=== PATIENT | female | born 2000 | race Hispanic/Latino ===

== ENCOUNTER → 2023-11-24 11:06 | Outpatient (CLI) | payer OTHER, SELFPAY ==
--- NOTE | 2023-11-24 11:07 | DI.US.S_ITS ---
PROCEDURE: US OB <= 14 WEEKS FETUS INDICATIONS: Dating and viability OUTSIDE/PRIOR DATING DATA: Last menstrual period (LMP): 10/01/2023. LMP-based estimated date of delivery (SOLITARIO): 07/07/2024. First dating scan (date and location): Today's exam. Estimated date of delivery (SOLITARIO) from first dating scan: 07/12/2024. TECHNIQUE: Real-time scanning was performed of the fetus and maternal pelvic organs, with image documentation. Endovaginal scanning was also performed to better visualize the fetus and maternal ovaries. COMPARISON: None. FINDINGS: Single living intrauterine gestational sac visualized. Small perigestational fluid collection measuring 7 x 7 x 7 mm. Embryo: 0.96 cm, 7 weeks 0 days Heart rate: 144 beats per minute Maternal organs: Ovaries are unremarkable. IMPRESSION: Single living intrauterine at 7 weeks 0 days, SOLITARIO of 07/12/2024 based on today's exam. Small perigestational fluid collection. We strive to produce accurate, complete, and clear reports of imaging services. To assist us in improving patient care, this report was composed using standard report templates and voice recognition software. Therefore, it may contain abnormal punctuation, insertions and/or omissions. Occasional wrong-word or sound-alike substitutions may occur. Though we review the report and make efforts to correct it, we do recommend that the report be read carefully in proper context to recognize any text inaccuracies. Dictated by: Jayme Villalpando M.D. on 11/24/2023 at 13:17 Approved by: Jayme Villalpando M.D. on 11/24/2023 at 13:21
== END ==
LOC: US 11:06
PROVIDERS: Referring Provider Family Medicine; Visit Provider Family Medicine
DX: Z34.01 Encounter for supervision of normal first pregnancy, first trimester (principal); Z3A.01 Less than 8 weeks gestation of pregnancy
CPT/HCPCS: 76801; 76817

== ENCOUNTER → 2023-12-04 09:58 | Outpatient (CLI) | payer OTHER, SELFPAY ==
[2023-12-04 11:32] LABS: Appearance Urine UA CLEAR; Bilirubin Urine UA NEGATIVE (NEGATIVE); Color Urine UA YELLOW; Glucose Urine UA NEGATIVE (Negative); Ketones Urine UA NEGATIVE (NEGATIVE); Leukocyte Esterase Urine UA NEGATIVE (NEGATIVE); Nitrite Urine UA NEGATIVE (Negative); Occult Blood Urine UA NEGATIVE (Negative); Protein Urine UA NEGATIVE (Negative); Specific Gravity Urine UA 1.015 (1.000-1.035); Urobilinogen Urine UA 0.2 E.U./dL (0.2)
[2023-12-04 11:34] LABS: Add Manual Diff / Slide Review NO; Basophils Absolute Auto 0 /uL (0-100); Basophils Percent Auto 0.3 % (0-2); Eosinophils Absolute Auto 100 /uL (0-450); Eosinophils Percent Auto 1.7 % (2-4); Hematocrit 35.3 % (36-46); Hemoglobin 11.9 g/dL (12.0-16.0); Lymphocytes Absolute Auto 1500 /uL (1100-4500); Lymphocytes Percent Auto 19.6 % (25-40); Mean Corpuscular HGB Conc 33.9 % (30-36); Mean Corpuscular Hemoglobin 30.9 PG (26-34); Mean Corpuscular Volume 91.1 fL (80-100); Monocytes Absolute Auto 500 /uL (0-900); Monocytes Percent Auto 6.6 % (3-14); Neutrophils Absolute Auto 5500 /uL (1500-7000); Neutrophils Percent Auto 71.8 % (50-75); Platelet Count 305 X10^3/uL (150-400); Red Blood Cell Count 3.87 X10^6/uL (4.0-5.2); Red Cell Distribution Width 12.2 % (11.6-14.8); White Blood Cell Count 7.7 X10^3/uL (4.5-11.0)
[2023-12-04 11:53] LABS: Natera Collection Specimen Collected
[2023-12-04 16:06] LABS: Hepatitis B Surface Antigen NEGATIVE s/c (NEGATIVE); Rubella Antibody IgG 7.6 IU/mL (>15)
[2023-12-04 16:23] LABS: HIV 1 & 2 Ab/Ag 4th Gen Combo NEGATIVE (NEGATIVE); Hep C Virus Ab w/Reflex Quant NEGATIVE s/c (NEGATIVE)
[2023-12-05 04:09] LABS: RPR Screen Non Reactive (Non Reactive)
[2023-12-06 11:36] LABS: Varicella IgG Antibody 2077 index (Immune >165)
== END ==
PROVIDERS: Family Medicine; Referring Provider Family Medicine; Visit Provider Family Medicine
DX: O09.511 Supervision of elderly primigravida, first trimester (principal)
CPT/HCPCS: 36415; 80055; 81003; 86787; 86803; 86850; 86900; 86901; 87086; 87389

== ENCOUNTER 2023-12-19 14:30 | Outpatient (RCR) | payer OTHER, SELFPAY ==
--- NOTE | 2023-11-02 14:18 | PT.OIE ---
Current Diagnoses Low back pain, unspecified (11/02/23) Visit Care Team Role Provider Type Angel Mahmood MD Attending Provider Non-Staff Primary Care Provider Referring Provider Specialty: Family Practice Address: [address] [place] [address], [id number] Email: Physical Therapy Initial Evaluation PT-OP-A Visit Information Start: 10/26/23 17:37 Freq: Status: Active Protocol: Document 11/02/23 13:01 [facility] (Rec: 11/02/23 14:18 [facility] [id number]) Out-Patient Physical Therapy Visit Information Visit Information Visit Type Initial Evaluation Visit Start Time 13:05 Visit Stop Time 13:55 Visit Number 1 Number of CRANE OPERATOR Visits 0 PT-OP-B Current Condition Start: 10/26/23 17:37 Freq: Status: Active Protocol: Document 11/02/23 13:01 [facility] (Rec: 11/02/23 14:18 [facility] [id number]) Current Condition History of Current Condition Onset Date 2 years Current Complaints LBP History of Current Condition Pt reports LBP starting about 2 years ago. She was at work and was builidng a propeller and she thought the table was bigger than it was and hit her back on the prop then fell onto butt onto floor. Has done PT and chiro from mar 2022 until Jan 2023 then got stationed here and has to start the process all over again. Has not seen ortho/ neurosurgery or had a MRI. PT or chiro did not help. For a while, she took a lot of meds (ibuprofen, mm relaxors) and those gave you relief at the time. takes only ibu occ now. 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 Xray didn' t show anything per pt. 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 they wanted to limit her duty, but she is trying to process to a different command so cannot be on limited duty until that transfer of command. She does her job tasks, but it inc pain. At first, pain was R sided, then started going lower then to L side and now pins and needles all the time. Toes are always going numb. Had a sharp stab once when walking and legs went completely numb and fellto the ground. Now, cannot tell she has to pee, until it becomes urgen to go but denies any bowel/bladder incontinence. Denies back pain before this incident but never was able to sit josh cross apple sauce and R leg was always tighter when younger. Never painful though Treatment Goals Patient/Caregiver Goals help back not be in as much pain, back feel stronger so can do everything at work w/o others helping extra PT-OP-C Subjective Start: 10/26/23 17:37 Freq: Status: Active Protocol: Document 11/02/23 13:01 [facility] (Rec: 11/02/23 14:18 [facility] [id number]) OP-PT Pain Assessment Location back pain Pain Location Details TL to SI B Description Sharp,With Movement Description- Other pins/needles, numb legs, tight inner thigh B Frequency Constant Radiating Location pins/needles/numbness post thigh then ant ibrahim; foot gets numb Pain Aggravating Factors Standing,Sitting,Walking, Bending,Lifting Pain Alleviating Factors Heat Other Pain Alleviating Factors lidocane patch, stretch, roll out back, biofreeze, massage gun PT-OP-D Balance Start: 10/26/23 17:37 Freq: Status: Active Protocol: Document 11/02/23 13:01 [facility] (Rec: 11/02/23 14:18 [facility] [id number]) Balance Tests Single Limb Standing Single Limb- Right >30 sec pain LB Single Limb- Left >30 sec pain lat hip PT-OP-F Manual Assessment Start: 10/26/23 17:37 Freq: Status: Active Protocol: Document 11/02/23 13:01 [facility] (Rec: 11/02/23 14:18 [facility] [id number]) Manual Assessments Soft Tissue Assessment Soft Tissue Mobility Assessment B QL and ES and multifidi tightness; r glute tightness Joint Mobility Assessment Joint Mobility Assessment sacral rot PT-OP-G Mobility & Gait Start: 10/26/23 17:37 Freq: Status: Active Protocol: Document 11/02/23 13:01 [facility] (Rec: 11/02/23 14:18 [facility] [id number]) OP Gait Assessment Comments Gait Comments Amb w/dec push off R>L; dec stance time RLE PT-OP-J Posture/Palpation/Skin Start: 10/26/23 17:37 Freq: Status: Active Protocol: Document 11/02/23 13:01 [facility] (Rec: 11/02/23 14:18 [facility] [id number]) Posture Evaluation [facility] Postural Classification System [facility] Postural Classifications Posterior/Posterior Vertebral Compression Test 1 Lumbar Protective Mechanism Left AP 1 Lumbar Protective Mechanism Right AP 0 Lumbar Protective Mechanism Left PA 2 Lumbar Protective Mechanism Right PA 2 Comments Posture Comments IR L>R knee, ant pelvic tilt, R iliac crest higher, equal greater troch, rot L; pelvic sheared L PT-OP-K Range of Motion Start: 10/26/23 17:37 Freq: Status: Active Protocol: Document 11/02/23 13:01 [facility] (Rec: 11/02/23 14:18 [facility] [id number]) Lumbar Spine Range of Motion Lumbar Spine Active Percentage Flexion 100 Extension 100 Rotation Left 100 Rotation Right 100 Lateral Flexion Left 100 Lateral Flexion Right 80 Comments pain flex, ext (L5 region where hinges), R sb; rot relief PT-OP-L Special Tests Start: 10/26/23 17:37 Freq: Status: Active Protocol: Document 11/02/23 13:01 [facility] (Rec: 11/02/23 14:18 [facility] [id number]) Special Tests Lumbar Spine Special Tests SLR Test Results positive R Angelito Test Results R iliacus tighter march test Test Results positive ext sit Test Results positive R Slump Test Results positive R PT-OP-M Strength Start: 10/26/23 17:37 Freq: Status: Active Protocol: Document 11/02/23 13:01 [facility] (Rec: 11/02/23 14:18 [facility] [id number]) Hip Strength Hip Manual Muscle Testing Right Flexion (L2) 4 Good Extension (S1) 4 Good Abduction 3+ Fair+ Adduction 5 Normal External Rotation 3+ Fair+ Internal Rotation 4+ Good+ Left Flexion (L2) 4+ Good+ Extension (S1) 5 Normal Abduction 4+ Good+ External Rotation 4- Good- Internal Rotation 4+ Good+ Comments B Knee and ankle MMT WNL PT-OP-Q Treatments Start: 10/26/23 17:37 Freq: Status: Active Protocol: Document 11/02/23 13:01 [facility] (Rec: 11/02/23 14:18 [facility] [id number]) Self-Care/Home Management Treatment Education Other Education 15 min: edu re: dec core and glute strength and its affect on back. Edu how this PT will work on manual skills, facilitation and exercises to maintain changes manual treatment makes; edu re: coccyx anatomy and how it could be affecting pt's pain along w/dural, fasical and pelvic floor attachments PT-OP-T Assessment and Plan Start: 10/26/23 17:37 Freq: Status: Active Protocol: Document 11/02/23 13:01 [facility] (Rec: 11/02/23 14:18 [facility] [id number]) Physical Therapy Assessment Goals pain Short Term Goal (STG) Pt will report no LE symptoms greater than 1/10. STG Duration 12/21 [facility] Goal (LTG) Pt will report no pain in back or Les greater than 1/10 LTG Duration 01/24 SALUD Impairment 20/50 Short Term Goal (STG) Pt will score no greater than 13/50 on SALUD to show improved functional mobility STG Duration 12/11 Locomotive Switch Operator Goal (LTG) Pt will score no greater than 3/50 on SALUD to show improved functional mobility LTG Duration 01/24 strength Short Term Goal (STG) Pt will be indep w/HEP [facility] Goal (LTG) pt will score at least 4/5 in all planes LPM and 5/5 hip MMT in order to allow greater ease w/typical work activities . LTG Duration 01/24 activity Short Term Goal (STG) Pt will be able to sit and/or stand at least 1 hour w/o inc pain STG Duration 12/24 [facility] Goal (LTG) pt will be able to work and do typical daily activites w/o inc pain greater than 1/10. LTG Duration 01/24 Assessment Summary Assessment Pt presents w/pain in LBP that progressed to BLE tingling/ numbness after a fall 2 years ago where she fell to her buttocks. She had PT (all exercise based) and chiro treatment which did not make any care home changes. She is unable to sit, stand or walk extended w/o inc pain and lifting does inc pain along w/ her job duties. She has overall good ROM, WNL reflexes , weakness of core and R glutes along w/innominate dysfunction and R sided neural tension. pt likely has coccyx dysfunction that may be inc dural/neural tension and inc pain in LEs. She would benefit from skilled PT to address her deficits and improve pain. Physical Therapy Plan Frequency and Duration Frequency of Treatment 1-2x/wk Duration of treatment (weeks) 12 Plan of Care Start Date 11/02/23 Plan of Care End Date 01/25/24 Therapeutic Interventions Therapeutic Interventions Balance Training,Gait Training ,Home Exercise Program,Joint Mobilizations,Manual Therapy, Neuromuscular Re-education, Self-Care/Home Management,Soft Tissue Mobilization,Taping, Therapeutic Activities, Therapeutic Exercises Modalities Cold Pack/Ice Massage,Electric Stimulation,Hot Packs, Infrared Therapy,Traction- Mechanical,Ultrasound Next Visit Focus/Plan Next Note Type Treatment Note Next Visit Plan manual: coccyx,sacrum, SI, hip R mobs, STM to R sciatic n pathway HEP: DL flex isometric w/DF, bird dog, sideplank knees (if can add abd hip), fwd plank, hip hinge/squat training s/l sleep prop edu
--- NOTE | 2023-11-02 14:18 | PT.OPPOC ---
Physical, Occupational & Speech Therapy At [facility] Current Diagnoses Low back pain, unspecified (11/02/23) Visit Care Team Role Provider Type Angel Mahmood MD Attending Provider Non-Staff Primary Care Provider Referring Provider Specialty: Family Practice Address: [address] [place] [address], [id number] Email: Plan Of Care PT-OP-T Assessment and Plan Start: 10/26/23 17:37 Freq: Status: Active Protocol: Document 11/02/23 13:01 [facility] (Rec: 11/02/23 14:18 [facility] [id number]) Physical Therapy Assessment Goals pain Short Term Goal (STG) Pt will report no LE symptoms greater than 1/10. STG Duration 12/21 Medical Practice Assistant Goal (LTG) Pt will report no pain in back or Les greater than 1/10 LTG Duration 01/24 SALUD Impairment 20/50 Short Term Goal (STG) Pt will score no greater than 13/50 on SALUD to show improved functional mobility STG Duration 12/11 [facility] Goal (LTG) Pt will score no greater than 3/50 on SALUD to show improved functional mobility LTG Duration 01/24 strength Short Term Goal (STG) Pt will be indep w/HEP [facility] Goal (LTG) pt will score at least 4/5 in all planes LPM and 5/5 hip MMT in order to allow greater ease w/typical work activities . LTG Duration 01/24 activity Short Term Goal (STG) Pt will be able to sit and/or stand at least 1 hour w/o inc pain STG Duration 12/24 Medical Practice Assistant Goal (LTG) pt will be able to work and do typical daily activites w/o inc pain greater than 1/10. LTG Duration 01/24 Assessment Summary Assessment Pt presents w/pain in LBP that progressed to BLE tingling/ numbness after a fall 2 years ago where she fell to her buttocks. She had PT (all exercise based) and chiro treatment which did not make any chcf changes. She is unable to sit, stand or walk extended w/o inc pain and lifting does inc pain along w/ her job duties. She has overall good ROM, WNL reflexes , weakness of core and R glutes along w/innominate dysfunction and R sided neural tension. pt likely has coccyx dysfunction that may be inc dural/neural tension and inc pain in LEs. She would benefit from skilled PT to address her deficits and improve pain. Physical Therapy Plan Frequency and Duration Frequency of Treatment 1-2x/wk Duration of treatment (weeks) 12 Plan of Care Start Date 11/02/23 Plan of Care End Date 01/25/24 Therapeutic Interventions Therapeutic Interventions Balance Training,Gait Training ,Home Exercise Program,Joint Mobilizations,Manual Therapy, Neuromuscular Re-education, Self-Care/Home Management,Soft Tissue Mobilization,Taping, Therapeutic Activities, Therapeutic Exercises Modalities Cold Pack/Ice Massage,Electric Stimulation,Hot Packs, Infrared Therapy,Traction- Mechanical,Ultrasound Next Visit Focus/Plan Next Note Type Treatment Note Next Visit Plan manual: coccyx,sacrum, SI, hip R mobs, STM to R sciatic n pathway HEP: DL flex isometric w/DF, bird dog, sideplank knees (if can add abd hip), fwd plank, hip hinge/squat training s/l sleep prop edu Plan of Care Dates Plan of Care Start Date 11/02/23 Plan of Care End Date 01/25/24 Electronically Signed by: Mellisa Uribe, PT 11/02/23 [id number] If you are in agreement with this Plan of Care, please return a signed and dated copy. I have reviewed this Plan of Care and certify that the skilled therapy services above are required to meet the patient?s needs. Physician Signature Date Printed Name and Credentials Clinical Instructor Signature Printed Name and Credentials
--- NOTE | 2023-11-07 15:16 | PT.OTN ---
Current Diagnoses Low back pain, unspecified (11/07/23) Physical Therapy Treatment Note PT-OP-A Visit Information Start: 10/26/23 17:37 Freq: Status: Active Protocol: Document 11/07/23 14:32 [facility] (Rec: 11/07/23 15:45 [facility] [id number]) Out-Patient Physical Therapy Visit Information Visit Information Visit Type Initial Evaluation Visit Start Time 14:32 Visit Stop Time 15:16 Visit Number 2 Number of GYMNASTICS INSTRUCTOR Visits 1 PT-OP-B Current Condition Start: 10/26/23 17:37 Freq: Status: Active Protocol: Document 11/02/23 13:01 [facility] (Rec: 11/02/23 14:18 [facility] [id number]) Current Condition History of Current Condition Onset Date 2 years Current Complaints LBP History of Current Condition Pt reports LBP starting about 2 years ago. She was at work and was builidng a propeller and she thought the table was bigger than it was and hit her back on the prop then fell onto butt onto floor. Has done PT and chiro from mar 2022 until Jan 2023 then got stationed here and has to start the process all over again. Has not seen ortho/ neurosurgery or had a MRI. PT or chiro did not help. For a while, she took a lot of meds (ibuprofen, mm relaxors) and those gave you relief at the time. takes only ibu occ now. 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 Xray didn' t show anything per pt. 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 they wanted to limit her duty, but she is trying to process to a different command so cannot be on limited duty until that transfer of command. She does her job tasks, but it inc pain. At first, pain was R sided, then started going lower then to L side and now pins and needles all the time. Toes are always going numb. Had a sharp stab once when walking and legs went completely numb and fellto the ground. Now, cannot tell she has to pee, until it becomes urgen to go but denies any bowel/bladder incontinence. Denies back pain before this incident but never was able to sit josh cross apple sauce and R leg was always tighter when younger. Never painful though Treatment Goals Patient/Caregiver Goals help back not be in as much pain, back feel stronger so can do everything at work w/o others helping extra PT-OP-C Subjective Start: 10/26/23 17:37 Freq: Status: Active Protocol: Document 11/07/23 14:32 [facility] (Rec: 11/07/23 15:45 [facility] [id number]) OP-PT Subjective Patient Comments Patient Comments Pt reports was little sore over R SI after last tx. PT-OP-D Balance Start: 10/26/23 17:37 Freq: Status: Active Protocol: Document 11/02/23 13:01 [facility] (Rec: 11/02/23 14:18 [facility] [id number]) Balance Tests Single Limb Standing Single Limb- Right >30 sec pain LB Single Limb- Left >30 sec pain lat hip PT-OP-F Manual Assessment Start: 10/26/23 17:37 Freq: Status: Active Protocol: Document 11/02/23 13:01 [facility] (Rec: 11/02/23 14:18 [facility] [id number]) Manual Assessments Soft Tissue Assessment Soft Tissue Mobility Assessment B QL and ES and multifidi tightness; r glute tightness Joint Mobility Assessment Joint Mobility Assessment sacral rot PT-OP-G Mobility & Gait Start: 10/26/23 17:37 Freq: Status: Active Protocol: Document 11/02/23 13:01 [facility] (Rec: 11/02/23 14:18 [facility] [id number]) OP Gait Assessment Comments Gait Comments Amb w/dec push off R>L; dec stance time RLE PT-OP-J Posture/Palpation/Skin Start: 10/26/23 17:37 Freq: Status: Active Protocol: Document 11/02/23 13:01 [facility] (Rec: 11/02/23 14:18 [facility] [id number]) Posture Evaluation [facility] Postural Classification System [facility] Postural Classifications Posterior/Posterior Vertebral Compression Test 1 Lumbar Protective Mechanism Left AP 1 Lumbar Protective Mechanism Right AP 0 Lumbar Protective Mechanism Left PA 2 Lumbar Protective Mechanism Right PA 2 Comments Posture Comments IR L>R knee, ant pelvic tilt, R iliac crest higher, equal greater troch, rot L; pelvic sheared L PT-OP-K Range of Motion Start: 10/26/23 17:37 Freq: Status: Active Protocol: Document 11/02/23 13:01 [facility] (Rec: 11/02/23 14:18 [facility] [id number]) Lumbar Spine Range of Motion Lumbar Spine Active Percentage Flexion 100 Extension 100 Rotation Left 100 Rotation Right 100 Lateral Flexion Left 100 Lateral Flexion Right 80 Comments pain flex, ext (L5 region where hinges), R sb; rot relief PT-OP-L Special Tests Start: 10/26/23 17:37 Freq: Status: Active Protocol: Document 11/02/23 13:01 [facility] (Rec: 11/02/23 14:18 [facility] [id number]) Special Tests Lumbar Spine Special Tests SLR Test Results positive R Angelito Test Results R iliacus tighter march test Test Results positive ext sit Test Results positive R Slump Test Results positive R PT-OP-M Strength Start: 10/26/23 17:37 Freq: Status: Active Protocol: Document 11/02/23 13:01 [facility] (Rec: 11/02/23 14:18 [facility] [id number]) Hip Strength Hip Manual Muscle Testing Right Flexion (L2) 4 Good Extension (S1) 4 Good Abduction 3+ Fair+ Adduction 5 Normal External Rotation 3+ Fair+ Internal Rotation 4+ Good+ Left Flexion (L2) 4+ Good+ Extension (S1) 5 Normal Abduction 4+ Good+ External Rotation 4- Good- Internal Rotation 4+ Good+ Comments B Knee and ankle MMT WNL PT-OP-Q Treatments Start: 10/26/23 17:37 Freq: Status: Active Protocol: Document 11/07/23 14:32 [facility] (Rec: 11/07/23 15:45 [facility] [id number]) Therapeutic Exercises Supine Exercises FIg 4 Side bilateral Equipment Used R foot inner thigh vs over opp L knee, L fine over R knee L Comments R >L limitation ER, improved ROM post manual angelito stretch Supine Exercise Name reviewed self stretch Side right Reps/Minutes 60 Comments good feedback stretch self pelvic alignment Supine Exercise Name 90/90 Side bilateral Equipment Used dowel ant thigh/post thigh, dowel Reps/Minutes 5 SH x3 reps each Comments pnfree, weakness L hip flexor reported (harder) Sidelying Exercises clamshell Sidelying Exercise Name added to HEP Side bilateral Resistance Tb #2 aqua band at thighs Reps/Minutes x10 Comments cued light TA draw in during lift lower, no pelvic wobble Other Exercises child pose Equipment Used over wedge- support trunk/UEs Comments during initial R lateral sacrum Manual Therapy Treatment Soft Tissue Mobilization hips Body Location piriformis Mobilization Type Sustained Pressure,Other Body Position prone over pillows Comments 1. child's pose R lateral sacrum 2. prone over pillows: MWM hip IR/ER: limited L ER, R IR Joint Mobilizations hips Joint R Body Position Supine Comments limited ER fig 4 pain anterolateral hip- 1. MWM ER strap anterior glide FM IR/ER, 2. inferior glide hip adduction/IR (pirifirmis positioning). Good feedback deep R hip stretch Manual Techniques MET Type R ilium flare out, level Comments MET isometric adduction R, abd L; self instructed hip flex/ ext MWM use dowel isometric Self-Care/Home Management Treatment Education Patient Education Body Mechanics,Joint Protection,Pain Management, Posture Other Education Time spent discussion use pillows between knees, behind back sidelying, under upper thighs supine with good feedback support to back and hip comfort. PT-OP-T Assessment and Plan Start: 10/26/23 17:37 Freq: Status: Active Protocol: Document 11/07/23 14:32 [facility] (Rec: 11/07/23 15:45 [facility] [id number]) Physical Therapy Assessment Goals pain Short Term Goal (STG) Pt will report no LE symptoms greater than 1/10. STG Duration 12/21 Digital Media Intern Goal (LTG) Pt will report no pain in back or Les greater than 1/10 LTG Duration 01/24 SALUD Impairment 20/50 Short Term Goal (STG) Pt will score no greater than 13/50 on SALUD to show improved functional mobility STG Duration 7/ Jail Goal (LTG) Pt will score no greater than 3/50 on SALUD to show improved functional mobility LTG Duration 01/24 strength Short Term Goal (STG) Pt will be indep w/HEP Jail Goal (LTG) pt will score at least 4/5 in all planes LPM and 5/5 hip MMT in order to allow greater ease w/typical work activities . LTG Duration 01/24 activity Short Term Goal (STG) Pt will be able to sit and/or stand at least 1 hour w/o inc pain STG Duration 12/24 Jail Goal (LTG) pt will be able to work and do typical daily activites w/o inc pain greater than 1/10. LTG Duration 01/24 Assessment Summary Assessment Pt responded well to manual, increased R hip ER Fig4. Good muscle tiring lat hip post clamshell no pain. I am able to movehip better. Physical Therapy Plan Frequency and Duration Frequency of Treatment 1-2x/wk Duration of treatment (weeks) 12 Plan of Care Start Date 11/02/23 Plan of Care End Date 01/25/24 Therapeutic Interventions Therapeutic Interventions Balance Training,Gait Training ,Home Exercise Program,Joint Mobilizations,Manual Therapy, Neuromuscular Re-education, Self-Care/Home Management,Soft Tissue Mobilization,Taping, Therapeutic Activities, Therapeutic Exercises Modalities Cold Pack/Ice Massage,Electric Stimulation,Hot Packs, Infrared Therapy,Traction- Mechanical,Ultrasound Next Visit Focus/Plan Next Note Type Treatment Note Next Visit Plan Assess response to manual, stretching and hip abd strengthening. POC: manual: coccyx,sacrum, SI , hip R mobs, STM to R sciatic n pathway HEP: DL flex isometric w/DF, bird dog, sideplank knees (if can add abd hip), fwd plank, hip hinge/squat training s/l sleep prop edu
--- NOTE | 2023-11-09 14:30 | PT.OTN ---
Current Diagnoses Low back pain, unspecified (11/09/23) Physical Therapy Treatment Note PT-OP-A Visit Information Start: 10/26/23 17:37 Freq: Status: Active Protocol: Document 11/09/23 13:50 SP (Rec: 11/09/23 14:34 SP [id number]) Out-Patient Physical Therapy Visit Information Visit Information Visit Type Treatment Note Visit Start Time 13:50 Visit Stop Time 14:30 Visit Number 3 Number of LANDSCAPE MANAGER Visits 2 PT-OP-B Current Condition Start: 10/26/23 17:37 Freq: Status: Active Protocol: Document 11/02/23 13:01 [facility] (Rec: 11/02/23 14:18 [facility] [id number]) Current Condition History of Current Condition Onset Date 2 years Current Complaints LBP History of Current Condition Pt reports LBP starting about 2 years ago. She was at work and was builidng a propeller and she thought the table was bigger than it was and hit her back on the prop then fell onto butt onto floor. Has done PT and chiro from mar 2022 until Jan 2023 then got stationed here and has to start the process all over again. Has not seen ortho/ neurosurgery or had a MRI. PT or chiro did not help. For a while, she took a lot of meds (ibuprofen, mm relaxors) and those gave you relief at the time. takes only ibu occ now. 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 Xray didn' t show anything per pt. 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 they wanted to limit her duty, but she is trying to process to a different command so cannot be on limited duty until that transfer of command. She does her job tasks, but it inc pain. At first, pain was R sided, then started going lower then to L side and now pins and needles all the time. Toes are always going numb. Had a sharp stab once when walking and legs went completely numb and fellto the ground. Now, cannot tell she has to pee, until it becomes urgen to go but denies any bowel/bladder incontinence. Denies back pain before this incident but never was able to sit josh cross apple sauce and R leg was always tighter when younger. Never painful though Treatment Goals Patient/Caregiver Goals help back not be in as much pain, back feel stronger so can do everything at work w/o others helping extra PT-OP-C Subjective Start: 10/26/23 17:37 Freq: Status: Active Protocol: Document 11/09/23 13:50 SP (Rec: 11/09/23 14:34 SP [id number]) OP-PT Subjective Patient Comments Patient Comments Pt reports little soreness R>L over TFL and glut med inferior ilium after last tx. Feels little pinch across B SI if goes up stairs to quick. PT-OP-D Balance Start: 10/26/23 17:37 Freq: Status: Active Protocol: Document 11/02/23 13:01 [facility] (Rec: 11/02/23 14:18 [facility] [id number]) Balance Tests Single Limb Standing Single Limb- Right >30 sec pain LB Single Limb- Left >30 sec pain lat hip PT-OP-F Manual Assessment Start: 10/26/23 17:37 Freq: Status: Active Protocol: Document 11/02/23 13:01 [facility] (Rec: 11/02/23 14:18 [facility] [id number]) Manual Assessments Soft Tissue Assessment Soft Tissue Mobility Assessment B QL and ES and multifidi tightness; r glute tightness Joint Mobility Assessment Joint Mobility Assessment sacral rot PT-OP-G Mobility & Gait Start: 10/26/23 17:37 Freq: Status: Active Protocol: Document 11/02/23 13:01 [facility] (Rec: 11/02/23 14:18 [facility] [id number]) OP Gait Assessment Comments Gait Comments Amb w/dec push off R>L; dec stance time RLE PT-OP-J Posture/Palpation/Skin Start: 10/26/23 17:37 Freq: Status: Active Protocol: Document 11/02/23 13:01 [facility] (Rec: 11/02/23 14:18 [facility] [id number]) Posture Evaluation Dotty Postural Classification System Dotty Postural Classifications Posterior/Posterior Vertebral Compression Test 1 Lumbar Protective Mechanism Left AP 1 Lumbar Protective Mechanism Right AP 0 Lumbar Protective Mechanism Left PA 2 Lumbar Protective Mechanism Right PA 2 Comments Posture Comments IR L>R knee, ant pelvic tilt, R iliac crest higher, equal greater troch, rot L; pelvic sheared L PT-OP-K Range of Motion Start: 10/26/23 17:37 Freq: Status: Active Protocol: Document 11/02/23 13:01 [facility] (Rec: 11/02/23 14:18 [facility] [id number]) Lumbar Spine Range of Motion Lumbar Spine Active Percentage Flexion 100 Extension 100 Rotation Left 100 Rotation Right 100 Lateral Flexion Left 100 Lateral Flexion Right 80 Comments pain flex, ext (L5 region where hinges), R sb; rot relief PT-OP-L Special Tests Start: 10/26/23 17:37 Freq: Status: Active Protocol: Document 11/02/23 13:01 [facility] (Rec: 11/02/23 14:18 [facility] [id number]) Special Tests Lumbar Spine Special Tests SLR Test Results positive R Angelito Test Results R iliacus tighter march test Test Results positive ext sit Test Results positive R Slump Test Results positive R PT-OP-M Strength Start: 10/26/23 17:37 Freq: Status: Active Protocol: Document 11/02/23 13:01 [facility] (Rec: 11/02/23 14:18 [facility] [id number]) Hip Strength Hip Manual Muscle Testing Right Flexion (L2) 4 Good Extension (S1) 4 Good Abduction 3+ Fair+ Adduction 5 Normal External Rotation 3+ Fair+ Internal Rotation 4+ Good+ Left Flexion (L2) 4+ Good+ Extension (S1) 5 Normal Abduction 4+ Good+ External Rotation 4- Good- Internal Rotation 4+ Good+ Comments B Knee and ankle MMT WNL PT-OP-Q Treatments Start: 10/26/23 17:37 Freq: Status: Active Protocol: Document 11/09/23 13:50 SP (Rec: 11/09/23 14:34 SP [id number]) Therapeutic Exercises Supine Exercises Bridge /c Hip ABD Supine Exercise Name trialed inPT- ed segmental bridge Resistance TB #2 around thighs Reps/Minutes 5 SH x5, 10 SH x5 reps Comments cued gentle glut engagment & sacral flex roll asc/desc self pelvic alignment Supine Exercise Name 90/90 Side bilateral Equipment Used dowel ant thigh/post thigh, dowel Reps/Minutes 5 SH x3 reps each Comments pnfree, weakness L hip flexor reported (harder) Sidelying Exercises clamshell Side bilateral Resistance Tb #2 aqua band at thighs Reps/Minutes 3 SH x12 Comments improved form Other Exercises bird dog Other Exercise Name trialed in PT Side bilateral Resistance UE/ LE ext Reps/Minutes x10 each side Comments min cues level pelvis L>R down /floor correction child pose Reps/Minutes feet close, knees apart Comments improved feel can do deeper stretch, pnfree Therapeutic Activity Therapeutic Activity squat mechanics Comments 1. dowel along spine hip hinge 2. dowel at spine squat 3. dowel AROM> 5# wt front hip hinge lift 4. squat crate lift 10#- cued PPT neutral squat and glut drive come stand- better just tiring warm mid/upper lumbar no pain 5. Ed spanish moss picker crate and pivot with Les, square up to crate not twist. PT-OP-T Assessment and Plan Start: 10/26/23 17:37 Freq: Status: Active Protocol: Document 11/09/23 13:50 SP (Rec: 11/09/23 14:34 SP [id number]) Physical Therapy Assessment Goals pain Short Term Goal (STG) Pt will report no LE symptoms greater than 1/10. STG Duration 12/21 Senior Care Goal (LTG) Pt will report no pain in back or Les greater than 1/10 LTG Duration 01/24 SALUD Impairment 20/50 Short Term Goal (STG) Pt will score no greater than 13/50 on SALUD to show improved functional mobility STG Duration 7/ Senior Care Goal (LTG) Pt will score no greater than 3/50 on SALUD to show improved functional mobility LTG Duration 01/24 strength Short Term Goal (STG) Pt will be indep w/HEP Senior Care Goal (LTG) pt will score at least 4/5 in all planes LPM and 5/5 hip MMT in order to allow greater ease w/typical work activities . LTG Duration 01/24 activity Short Term Goal (STG) Pt will be able to sit and/or stand at least 1 hour w/o inc pain STG Duration 12/24 Senior Care Goal (LTG) pt will be able to work and do typical daily activites w/o inc pain greater than 1/10. LTG Duration 01/24 Assessment Summary Assessment Pt has level ilium ASIS and PSIS. 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 Cues for spinal alignment TA and PPT CRIMPING MACHINE OPERATOR during squat, improvement form and TA engagment reported, alot better feeling than what use to. Ed for carryover picking up items, square up to and pivot vs twist for back health with verbal understanding. Physical Therapy Plan Frequency and Duration Frequency of Treatment 1-2x/wk Duration of treatment (weeks) 12 Plan of Care Start Date 11/02/23 Plan of Care End Date 01/25/24 Therapeutic Interventions Therapeutic Interventions Balance Training,Gait Training ,Home Exercise Program,Joint Mobilizations,Manual Therapy, Neuromuscular Re-education, Self-Care/Home Management,Soft Tissue Mobilization,Taping, Therapeutic Activities, Therapeutic Exercises Modalities Cold Pack/Ice Massage,Electric Stimulation,Hot Packs, Infrared Therapy,Traction- Mechanical,Ultrasound Next Visit Focus/Plan Next Note Type Treatment Note Next Visit Plan Assess response added resistance to hip abd & ER LE strengthening and initiated squat mechanics. POC: manual: coccyx,sacrum, SI , hip R mobs, STM to R sciatic n pathway HEP: DL flex isometric w/DF, bird dog, sideplank knees (if can add abd hip), fwd plank
--- NOTE | 2023-11-13 13:59 | PT-OP ANOTE ---
Pt called and VM left re: no show and reminded of next scheduled visit 11/28 and was encouraged to call to be on [facility] for next week. Pt reminded of no show policy.
--- NOTE | 2023-11-29 09:55 | PT.OTN ---
Current Diagnoses Low back pain, unspecified (11/29/23) Physical Therapy Treatment Note PT-OP-A Visit Information Start: 10/26/23 17:37 Freq: Status: Active Protocol: Document 11/29/23 09:06 [facility] (Rec: 11/29/23 09:53 [facility] [id number]) Out-Patient Physical Therapy Visit Information Visit Information Visit Type Treatment Note Visit Start Time 09:07 Visit Stop Time 09:45 Visit Number 4 Number of SNOWBLOWER MECHANIC Visits 0 PT-OP-B Current Condition Start: 10/26/23 17:37 Freq: Status: Active Protocol: Document 11/02/23 13:01 [facility] (Rec: 11/02/23 14:18 [facility] [id number]) Current Condition History of Current Condition Onset Date 2 years Current Complaints LBP History of Current Condition Pt reports LBP starting about 2 years ago. She was at work and was builidng a propeller and she thought the table was bigger than it was and hit her back on the prop then fell onto butt onto floor. Has done PT and chiro from mar 2022 until Jan 2023 then got stationed here and has to start the process all over again. Has not seen ortho/ neurosurgery or had a MRI. PT or chiro did not help. For a while, she took a lot of meds (ibuprofen, mm relaxors) and those gave you relief at the time. takes only ibu occ now. 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 Xray didn' t show anything per pt. 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 they wanted to limit her duty, but she is trying to process to a different command so cannot be on limited duty until that transfer of command. She does her job tasks, but it inc pain. At first, pain was R sided, then started going lower then to L side and now pins and needles all the time. Toes are always going numb. Had a sharp stab once when walking and legs went completely numb and fellto the ground. Now, cannot tell she has to pee, until it becomes urgen to go but denies any bowel/bladder incontinence. Denies back pain before this incident but never was able to sit josh cross apple sauce and R leg was always tighter when younger. Never painful though Treatment Goals Patient/Caregiver Goals help back not be in as much pain, back feel stronger so can do everything at work w/o others helping extra PT-OP-C Subjective Start: 10/26/23 17:37 Freq: Status: Active Protocol: Document 11/29/23 09:06 [facility] (Rec: 11/29/23 09:53 [facility] [id number]) OP-PT Subjective Patient Comments Patient Comments Pt reports compliance w/ exercises and found out she was the day she missed last session. She is 8 weeks PT-OP-D Balance Start: 10/26/23 17:37 Freq: Status: Active Protocol: Document 11/02/23 13:01 [facility] (Rec: 11/02/23 14:18 [facility] [id number]) Balance Tests Single Limb Standing Single Limb- Right >30 sec pain LB Single Limb- Left >30 sec pain lat hip PT-OP-F Manual Assessment Start: 10/26/23 17:37 Freq: Status: Active Protocol: Document 11/02/23 13:01 [facility] (Rec: 11/02/23 14:18 [facility] [id number]) Manual Assessments Soft Tissue Assessment Soft Tissue Mobility Assessment B QL and ES and multifidi tightness; r glute tightness Joint Mobility Assessment Joint Mobility Assessment sacral rot PT-OP-G Mobility & Gait Start: 10/26/23 17:37 Freq: Status: Active Protocol: Document 11/02/23 13:01 [facility] (Rec: 11/02/23 14:18 [facility] [id number]) OP Gait Assessment Comments Gait Comments Amb w/dec push off R>L; dec stance time RLE PT-OP-J Posture/Palpation/Skin Start: 10/26/23 17:37 Freq: Status: Active Protocol: Document 11/02/23 13:01 [facility] (Rec: 11/02/23 14:18 [facility] [id number]) Posture Evaluation Dotty Postural Classification System Dotty Postural Classifications Posterior/Posterior Vertebral Compression Test 1 Lumbar Protective Mechanism Left AP 1 Lumbar Protective Mechanism Right AP 0 Lumbar Protective Mechanism Left PA 2 Lumbar Protective Mechanism Right PA 2 Comments Posture Comments IR L>R knee, ant pelvic tilt, R iliac crest higher, equal greater troch, rot L; pelvic sheared L PT-OP-K Range of Motion Start: 10/26/23 17:37 Freq: Status: Active Protocol: Document 11/02/23 13:01 [facility] (Rec: 11/02/23 14:18 [facility] [id number]) Lumbar Spine Range of Motion Lumbar Spine Active Percentage Flexion 100 Extension 100 Rotation Left 100 Rotation Right 100 Lateral Flexion Left 100 Lateral Flexion Right 80 Comments pain flex, ext (L5 region where hinges), R sb; rot relief PT-OP-L Special Tests Start: 10/26/23 17:37 Freq: Status: Active Protocol: Document 11/02/23 13:01 [facility] (Rec: 11/02/23 14:18 [facility] [id number]) Special Tests Lumbar Spine Special Tests SLR Test Results positive R Angelito Test Results R iliacus tighter march test Test Results positive ext sit Test Results positive R Slump Test Results positive R PT-OP-M Strength Start: 10/26/23 17:37 Freq: Status: Active Protocol: Document 11/02/23 13:01 [facility] (Rec: 11/02/23 14:18 [facility] [id number]) Hip Strength Hip Manual Muscle Testing Right Flexion (L2) 4 Good Extension (S1) 4 Good Abduction 3+ Fair+ Adduction 5 Normal External Rotation 3+ Fair+ Internal Rotation 4+ Good+ Left Flexion (L2) 4+ Good+ Extension (S1) 5 Normal Abduction 4+ Good+ External Rotation 4- Good- Internal Rotation 4+ Good+ Comments B Knee and ankle MMT WNL PT-OP-Q Treatments Start: 10/26/23 17:37 Freq: Status: Active Protocol: Document 11/29/23 09:06 [facility] (Rec: 11/29/23 09:53 [facility] [id number]) Therapeutic Exercises Supine Exercises Bridge /c Hip ABD Supine Exercise Name Single leg w/opp leg ext and foot on ground Side bilateral Reps/Minutes 12 ea Sidelying Exercises clamshell Sidelying Exercise Name sideplank forearm and knees Side bilateral Resistance no band Reps/Minutes 12 ea Other Exercises bird dog Side bilateral Resistance UE flex / LE ext Reps/Minutes 15 ea Comments cues w/L>R for no hip rot Manual Therapy Treatment Soft Tissue Mobilization hips Mobilization Type Rolling,Sustained Pressure, Other Comments B proximal HS, R lat glute, R iliacus Joint Mobilizations hips Comments B Inf and B hip ER free the ball FM PT-OP-T Assessment and Plan Start: 10/26/23 17:37 Freq: Status: Active Protocol: Document 11/29/23 09:06 [facility] (Rec: 11/29/23 09:53 [facility] [id number]) Physical Therapy Assessment Goals pain Short Term Goal (STG) Pt will report no LE symptoms greater than 1/10. STG Duration 12/21 Retirement Goal (LTG) Pt will report no pain in back or Les greater than 1/10 LTG Duration 01/24 SALUD Impairment 20/50 Short Term Goal (STG) Pt will score no greater than 13/50 on SALUD to show improved functional mobility STG Duration 12/11 Retirement Goal (LTG) Pt will score no greater than 3/50 on SALUD to show improved functional mobility LTG Duration 01/24 strength Short Term Goal (STG) Pt will be indep w/HEP Telecommunications Repairer Goal (LTG) pt will score at least 4/5 in all planes LPM and 5/5 hip MMT in order to allow greater ease w/typical work activities . LTG Duration 01/24 activity Short Term Goal (STG) Pt will be able to sit and/or stand at least 1 hour w/o inc pain STG Duration 12/24 Telecommunications Repairer Goal (LTG) pt will be able to work and do typical daily activites w/o inc pain greater than 1/10. LTG Duration 01/24 Assessment Summary Assessment Pt stood up and reports hips and legs painfree after manual . Able to advance strengthening exercises w/o inc pain Physical Therapy Plan Frequency and Duration Frequency of Treatment 1-2x/wk Duration of treatment (weeks) 12 Plan of Care Start Date 11/02/23 Plan of Care End Date 01/25/24 Next Visit Focus/Plan Next Note Type Treatment Note Next Visit Plan cont to advance core and work manually on innominate and back gently
--- NOTE | 2023-12-01 09:47 | PT.OTN ---
Current Diagnoses Low back pain, unspecified (12/01/23) Physical Therapy Treatment Note PT-OP-A Visit Information Start: 10/26/23 17:37 Freq: Status: Active Protocol: Document 12/01/23 13:47 SP (Rec: 12/01/23 14:32 SP [id number]) Out-Patient Physical Therapy Visit Information Visit Information Visit Type Treatment Note Visit Note NURSING SECRETARY Beau shadowed and assisted manual and ther ex instruction. Visit Start Time 09:07 Visit Stop Time 09:47 Visit Number 5 Number of NURSING SECRETARY Visits 1 Precautions Precautions 12/01/23: new 8 weeks . PT-OP-B Current Condition Start: 10/26/23 17:37 Freq: Status: Active Protocol: Document 11/02/23 13:01 LR (Rec: 11/02/23 14:18 [facility] [id number]) Current Condition History of Current Condition Onset Date 2 years Current Complaints LBP History of Current Condition Pt reports LBP starting about 2 years ago. She was at work and was builidng a propeller and she thought the table was bigger than it was and hit her back on the prop then fell onto butt onto floor. Has done PT and chiro from mar 2022 until Jan 2023 then got stationed here and has to start the process all over again. Has not seen ortho/ neurosurgery or had a MRI. PT or chiro did not help. For a while, she took a lot of meds (ibuprofen, mm relaxors) and those gave you relief at the time. takes only ibu occ now. 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 Xray didn' t show anything per pt. 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 they wanted to limit her duty, but she is trying to process to a different command so cannot be on limited duty until that transfer of command. She does her job tasks, but it inc pain. At first, pain was R sided, then started going lower then to L side and now pins and needles all the time. Toes are always going numb. Had a sharp stab once when walking and legs went completely numb and fellto the ground. Now, cannot tell she has to pee, until it becomes urgen to go but denies any bowel/bladder incontinence. Denies back pain before this incident but never was able to sit josh cross apple sauce and R leg was always tighter when younger. Never painful though Treatment Goals Patient/Caregiver Goals help back not be in as much pain, back feel stronger so can do everything at work w/o others helping extra PT-OP-C Subjective Start: 10/26/23 17:37 Freq: Status: Active Protocol: Document 12/01/23 13:47 SP (Rec: 12/01/23 14:32 SP [id number]) OP-PT Subjective Patient Comments Patient Comments Pt arrives reporting found out 8 weeks . She stated soreness top of buttocks inferior posterior ilium after last tx but felt good to be active. Stated R SI discomfort arrival today. She stated she feels like needs adjust/pop R SI to feel better. Mainly tightness standing and walking across flightline tightness but not realize til sit at lunch very taught bend. Needs full stretch and crack in am to feel better. PT-OP-D Balance Start: 10/26/23 17:37 Freq: Status: Active Protocol: Document 11/02/23 13:01 [facility] (Rec: 11/02/23 14:18 [facility] [id number]) Balance Tests Single Limb Standing Single Limb- Right >30 sec pain LB Single Limb- Left >30 sec pain lat hip PT-OP-F Manual Assessment Start: 10/26/23 17:37 Freq: Status: Active Protocol: Document 11/02/23 13:01 [facility] (Rec: 11/02/23 14:18 [facility] [id number]) Manual Assessments Soft Tissue Assessment Soft Tissue Mobility Assessment B QL and ES and multifidi tightness; r glute tightness Joint Mobility Assessment Joint Mobility Assessment sacral rot PT-OP-G Mobility & Gait Start: 10/26/23 17:37 Freq: Status: Active Protocol: Document 11/02/23 13:01 [facility] (Rec: 11/02/23 14:18 [facility] [id number]) OP Gait Assessment Comments Gait Comments Amb w/dec push off R>L; dec stance time RLE PT-OP-J Posture/Palpation/Skin Start: 10/26/23 17:37 Freq: Status: Active Protocol: Document 11/02/23 13:01 [facility] (Rec: 11/02/23 14:18 [facility] [id number]) Posture Evaluation Dotty Postural Classification System [facility] Postural Classifications Posterior/Posterior Vertebral Compression Test 1 Lumbar Protective Mechanism Left AP 1 Lumbar Protective Mechanism Right AP 0 Lumbar Protective Mechanism Left PA 2 Lumbar Protective Mechanism Right PA 2 Comments Posture Comments IR L>R knee, ant pelvic tilt, R iliac crest higher, equal greater troch, rot L; pelvic sheared L PT-OP-K Range of Motion Start: 10/26/23 17:37 Freq: Status: Active Protocol: Document 11/02/23 13:01 [facility] (Rec: 11/02/23 14:18 [facility] [id number]) Lumbar Spine Range of Motion Lumbar Spine Active Percentage Flexion 100 Extension 100 Rotation Left 100 Rotation Right 100 Lateral Flexion Left 100 Lateral Flexion Right 80 Comments pain flex, ext (L5 region where hinges), R sb; rot relief PT-OP-L Special Tests Start: 10/26/23 17:37 Freq: Status: Active Protocol: Document 11/02/23 13:01 [facility] (Rec: 11/02/23 14:18 [facility] [id number]) Special Tests Lumbar Spine Special Tests SLR Test Results positive R Angelito Test Results R iliacus tighter march test Test Results positive ext sit Test Results positive R Slump Test Results positive R PT-OP-M Strength Start: 10/26/23 17:37 Freq: Status: Active Protocol: Document 11/02/23 13:01 [facility] (Rec: 11/02/23 14:18 [facility] [id number]) Hip Strength Hip Manual Muscle Testing Right Flexion (L2) 4 Good Extension (S1) 4 Good Abduction 3+ Fair+ Adduction 5 Normal External Rotation 3+ Fair+ Internal Rotation 4+ Good+ Left Flexion (L2) 4+ Good+ Extension (S1) 5 Normal Abduction 4+ Good+ External Rotation 4- Good- Internal Rotation 4+ Good+ Comments B Knee and ankle MMT WNL PT-OP-Q Treatments Start: 10/26/23 17:37 Freq: Status: Active Protocol: Document 12/01/23 13:47 SP (Rec: 12/01/23 14:32 SP [id number]) Therapeutic Exercises Supine Exercises TA bridge /c HS draw back isometric Supine Exercise Name trialed in PT Reps/Minutes 30 SH x2 Comments good lower abdominal activation, pnfree back Bridge /c Hip ABD Supine Exercise Name Single leg w/opp leg ext and foot on ground Side bilateral Reps/Minutes 12 ea Comments improved level pelvis, cued PPT& TA, no LB arch Sidelying Exercises clamshell Sidelying Exercise Name sideplank forearm and knees Side bilateral Resistance no band Reps/Minutes 12 ea Comments cued slow, not as high lift Other Exercises cat pose /c UE pull down isometric Other Exercise Name trialed in PT Side bilateral Reps/Minutes 30 SH x2 Comments good low core activation reported, pnfree back bird dog Other Exercise Name HEP reviewed Side bilateral Resistance UE flex / LE ext Reps/Minutes 15 ea Comments cues slower pace in/out, let knee slide return on table Manual Therapy Treatment Joint Mobilizations hips Comments B hip ER free the ball FM Manual Techniques MET Type R ilium flare out & Ant tilt; L flare in & Post tilt Reps/Duration 5 SH x5 reps Comments MET isometric adduction R, abd L; manual and instructed self L hip flex isometric, R isometric hip ext. Improved level and midline neutral pelvis PT-OP-T Assessment and Plan Start: 10/26/23 17:37 Freq: Status: Active Protocol: Document 12/01/23 13:47 SP (Rec: 12/01/23 14:32 SP [id number]) Physical Therapy Assessment Goals pain Short Term Goal (STG) Pt will report no LE symptoms greater than 1/10. STG Duration 12/21 Ship Rigger Apprentice Goal (LTG) Pt will report no pain in back or Les greater than 1/10 LTG Duration 01/24 SALUD Impairment 20/50 Short Term Goal (STG) Pt will score no greater than 13/50 on SALUD to show improved functional mobility STG Duration 7/ Ship Rigger Apprentice Goal (LTG) Pt will score no greater than 3/50 on SALUD to show improved functional mobility LTG Duration 01/24 strength Short Term Goal (STG) Pt will be indep w/HEP Ship Rigger Apprentice Goal (LTG) pt will score at least 4/5 in all planes LPM and 5/5 hip MMT in order to allow greater ease w/typical work activities . LTG Duration 01/24 activity Short Term Goal (STG) Pt will be able to sit and/or stand at least 1 hour w/o inc pain STG Duration 12/24 Shelter Goal (LTG) pt will be able to work and do typical daily activites w/o inc pain greater than 1/10. LTG Duration 01/24 Assessment Summary Assessment Pt reports less tightness at R SI post MET manual&self ed, and stable over B SI after ther ex. Cues for slower pacing and pelvis corrections allowed increased core activation reported. Trialed in PT only new core supine& quadruped for abdominal activation with good feedback tightening. Better control and level pelvis during bird dog with cues for knee slow glide touch into WB return. Physical Therapy Plan Frequency and Duration Frequency of Treatment 1-2x/wk Duration of treatment (weeks) 12 Plan of Care Start Date 11/02/23 Plan of Care End Date 01/25/24 Therapeutic Interventions Therapeutic Interventions Balance Training,Gait Training ,Home Exercise Program,Joint Mobilizations,Manual Therapy, Neuromuscular Re-education, Self-Care/Home Management,Soft Tissue Mobilization,Taping, Therapeutic Activities, Therapeutic Exercises Modalities Cold Pack/Ice Massage,Electric Stimulation,Hot Packs, Infrared Therapy,Traction- Mechanical,Ultrasound Next Visit Focus/Plan Next Note Type Treatment Note Next Visit Plan Recheck bird dog and side plank clam form. PT POC: cont to advance core and work manually on innominate and back gently
--- NOTE | 2023-12-07 13:48 | PT.OTN ---
Current Diagnoses Low back pain, unspecified (12/07/23) Physical Therapy Treatment Note PT-OP-A Visit Information Start: 10/26/23 17:37 Freq: Status: Active Protocol: Document 12/07/23 13:01 [facility] (Rec: 12/07/23 13:48 [facility] [id number]) Out-Patient Physical Therapy Visit Information Visit Information Visit Type Treatment Note Visit Start Time 13:03 Visit Stop Time 13:43 Visit Number 6 Number of VETERINARY ASSISTANT TECHNICIAN Visits 0 PT-OP-B Current Condition Start: 10/26/23 17:37 Freq: Status: Active Protocol: Document 11/02/23 13:01 [facility] (Rec: 11/02/23 14:18 [facility] [id number]) Current Condition History of Current Condition Onset Date 2 years Current Complaints LBP History of Current Condition Pt reports LBP starting about 2 years ago. She was at work and was builidng a propeller and she thought the table was bigger than it was and hit her back on the prop then fell onto butt onto floor. Has done PT and chiro from mar 2022 until Jan 2023 then got stationed here and has to start the process all over again. Has not seen ortho/ neurosurgery or had a MRI. PT or chiro did not help. For a while, she took a lot of meds (ibuprofen, mm relaxors) and those gave you relief at the time. takes only ibu occ now. 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 Xray didn' t show anything per pt. 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 they wanted to limit her duty, but she is trying to process to a different command so cannot be on limited duty until that transfer of command. She does her job tasks, but it inc pain. At first, pain was R sided, then started going lower then to L side and now pins and needles all the time. Toes are always going numb. Had a sharp stab once when walking and legs went completely numb and fellto the ground. Now, cannot tell she has to pee, until it becomes urgen to go but denies any bowel/bladder incontinence. Denies back pain before this incident but never was able to sit josh cross apple sauce and R leg was always tighter when younger. Never painful though Treatment Goals Patient/Caregiver Goals help back not be in as much pain, back feel stronger so can do everything at work w/o others helping extra PT-OP-C Subjective Start: 10/26/23 17:37 Freq: Status: Active Protocol: Document 12/07/23 13:01 [facility] (Rec: 12/07/23 13:48 [facility] [id number]) OP-PT Subjective Patient Comments Patient Comments Pt reports some med knee disocmfort around monday. No pain down the legs for about a month. back was sore monday and partener was massaging w/ massage gun and back felt better but L glute has been uncomfortable PT-OP-D Balance Start: 10/26/23 17:37 Freq: Status: Active Protocol: Document 11/02/23 13:01 [facility] (Rec: 11/02/23 14:18 [facility] [id number]) Balance Tests Single Limb Standing Single Limb- Right >30 sec pain LB Single Limb- Left >30 sec pain lat hip PT-OP-F Manual Assessment Start: 10/26/23 17:37 Freq: Status: Active Protocol: Document 11/02/23 13:01 [facility] (Rec: 11/02/23 14:18 [facility] [id number]) Manual Assessments Soft Tissue Assessment Soft Tissue Mobility Assessment B QL and ES and multifidi tightness; r glute tightness Joint Mobility Assessment Joint Mobility Assessment sacral rot PT-OP-G Mobility & Gait Start: 10/26/23 17:37 Freq: Status: Active Protocol: Document 11/02/23 13:01 [facility] (Rec: 11/02/23 14:18 [facility] [id number]) OP Gait Assessment Comments Gait Comments Amb w/dec push off R>L; dec stance time RLE PT-OP-J Posture/Palpation/Skin Start: 10/26/23 17:37 Freq: Status: Active Protocol: Document 11/02/23 13:01 [facility] (Rec: 11/02/23 14:18 [facility] [id number]) Posture Evaluation Dotty Postural Classification System Dotty Postural Classifications Posterior/Posterior Vertical Compression Test 1 Lumbar Protective Mechanism Left AP 1 Lumbar Protective Mechanism Right AP 0 Lumbar Protective Mechanism Left PA 2 Lumbar Protective Mechanism Right PA 2 Comments Posture Comments IR L>R knee, ant pelvic tilt, R iliac crest higher, equal greater troch, rot L; pelvic sheared L PT-OP-K Range of Motion Start: 10/26/23 17:37 Freq: Status: Active Protocol: Document 11/02/23 13:01 [facility] (Rec: 11/02/23 14:18 [facility] [id number]) Lumbar Spine Range of Motion Lumbar Spine Active Percentage Flexion 100 Extension 100 Rotation Left 100 Rotation Right 100 Lateral Flexion Left 100 Lateral Flexion Right 80 Comments pain flex, ext (L5 region where hinges), R sb; rot relief PT-OP-L Special Tests Start: 10/26/23 17:37 Freq: Status: Active Protocol: Document 11/02/23 13:01 [facility] (Rec: 11/02/23 14:18 [facility] [id number]) Special Tests Lumbar Spine Special Tests SLR Test Results positive R Angelito Test Results R iliacus tighter march test Test Results positive ext sit Test Results positive R Slump Test Results positive R PT-OP-M Strength Start: 10/26/23 17:37 Freq: Status: Active Protocol: Document 11/02/23 13:01 [facility] (Rec: 11/02/23 14:18 [facility] [id number]) Hip Strength Hip Manual Muscle Testing Right Flexion (L2) 4 Good Extension (S1) 4 Good Abduction 3+ Fair+ Adduction 5 Normal External Rotation 3+ Fair+ Internal Rotation 4+ Good+ Left Flexion (L2) 4+ Good+ Extension (S1) 5 Normal Abduction 4+ Good+ External Rotation 4- Good- Internal Rotation 4+ Good+ Comments B Knee and ankle MMT WNL PT-OP-Q Treatments Start: 10/26/23 17:37 Freq: Status: Active Protocol: Document 12/07/23 13:01 [facility] (Rec: 12/07/23 13:48 [facility] [id number]) Therapeutic Exercises Supine Exercises Bridge /c Hip ABD Supine Exercise Name Single leg w/opp leg ext and foot on ground Side bilateral Reps/Minutes 12 ea Comments improved level pelvis, cued PPT& TA, no LB arch Prone Exercises plank Side bilateral Reps/Minutes 2x20 sec Comments inc time for cues for head and thoracic position Sidelying Exercises clamshell Sidelying Exercise Name sideplank forearm and knees Side bilateral Resistance no band Reps/Minutes 12 ea Comments cued slow, not as high lift Standing Exercises stretch Standing Exercise Name Quad/hip flexor Side left Equipment Used chair Reps/Minutes 30 sec Manual Therapy Treatment Consent Patient gave verbal consent for manual Yes treatment Soft Tissue Mobilization hips Mobilization Type Rolling,Sustained Pressure, Other Comments L piriformis and glutes s/l; supine Rectus femoris, TFL Joint Mobilizations hips Comments L inf glide FM PT-OP-T Assessment and Plan Start: 10/26/23 17:37 Freq: Status: Active Protocol: Document 12/07/23 13:01 [facility] (Rec: 12/07/23 13:48 [facility] [id number]) Physical Therapy Assessment Goals pain Short Term Goal (STG) Pt will report no LE symptoms greater than 1/10. STG Duration 12/21 Mcfp Goal (LTG) Pt will report no pain in back or Les greater than 1/10 LTG Duration 01/24 SALUD Impairment 20/50 Short Term Goal (STG) Pt will score no greater than 13/50 on SALUD to show improved functional mobility STG Duration 12/11 Mcfp Goal (LTG) Pt will score no greater than 3/50 on SALUD to show improved functional mobility LTG Duration 01/24 strength Short Term Goal (STG) Pt will be indep w/HEP Mcfp Goal (LTG) pt will score at least 4/5 in all planes LPM and 5/5 hip MMT in order to allow greater ease w/typical work activities . LTG Duration 01/24 activity Short Term Goal (STG) Pt will be able to sit and/or stand at least 1 hour w/o inc pain STG Duration 12/24 Steam Service Inspector Goal (LTG) pt will be able to work and do typical daily activites w/o inc pain greater than 1/10. LTG Duration 01/24 Assessment Summary Assessment pt reuqired less cues w/ exercises today, but did have inc back ext when doing L clamshells w/side plank andimproved w/cues. Likely d/t tightness in ant hip as tested positive w/L angelito test (iliopsoas & rectus femoris) Physical Therapy Plan Frequency and Duration Frequency of Treatment 1-2x/wk Duration of treatment (weeks) 12 Plan of Care Start Date 11/02/23 Plan of Care End Date 01/25/24 Next Visit Focus/Plan Next Note Type Treatment Note Next Visit Plan Recheck bird dog and side plank clam form and fwd plank advance core and work manually on hip and back as needed to dec pain
--- NOTE | 2023-12-12 18:27 | PT.OTN ---
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 She was at work and was builidng a propeller and she thought the table was bigger than it was and hit her back on the prop then fell onto butt onto floor. Has done PT and chiro from mar 2022 until Jan 2023 then got stationed here and has to start the process all over again. Has not seen ortho/ neurosurgery or had a MRI. PT or chiro did not help. For a while, she took a lot of meds (ibuprofen, mm relaxors) and those gave you relief at the time. takes only ibu occ now. 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 Xray didn' t show anything per pt. 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 they wanted to limit her duty, but she is trying to process to a different command so cannot be on limited duty until that transfer of command. She does her job tasks, but it inc pain. At first, pain was R sided, then started going lower then to L side and now pins and needles all the time. Toes are always going numb. Had a sharp stab once when walking and legs went completely numb and fellto the ground. Now, cannot tell she has to pee, until it becomes urgen to go but denies any bowel/bladder incontinence. Denies back pain before this incident but never was able to sit josh cross apple sauce and R leg was always tighter when younger. Never painful though Treatment Goals Patient/Caregiver Goals help back not be in as much pain, back feel stronger so can do everything at work w/o others helping extra PT-OP-C Subjective Start: 10/26/23 17:37 Freq: Status: Active Protocol: Document 12/12/23 16:10 JG (Rec: 12/12/23 17:53 JG [id number]) OP-PT Subjective Patient Comments Patient Comments No current back pain and is having trouble with planks Patient Reported Progress Improving PT-OP-D Balance Start: 10/26/23 17:37 Freq: Status: Active Protocol: Document 11/02/23 13:01 [facility] (Rec: 11/02/23 14:18 [facility] [id number]) Balance Tests Single Limb Standing Single Limb- Right >30 sec pain LB Single Limb- Left >30 sec pain lat hip PT-OP-F Manual Assessment Start: 10/26/23 17:37 Freq: Status: Active Protocol: Document 11/02/23 13:01 [facility] (Rec: 11/02/23 14:18 [facility] [id number]) Manual Assessments Soft Tissue Assessment Soft Tissue Mobility Assessment B QL and ES and multifidi tightness; r glute tightness Joint Mobility Assessment Joint Mobility Assessment sacral rot PT-OP-G Mobility & Gait Start: 10/26/23 17:37 Freq: Status: Active Protocol: Document 11/02/23 13:01 [facility] (Rec: 11/02/23 14:18 [facility] [id number]) OP Gait Assessment Comments Gait Comments Amb w/dec push off R>L; dec stance time RLE PT-OP-J Posture/Palpation/Skin Start: 10/26/23 17:37 Freq: Status: Active Protocol: Document 11/02/23 13:01 [facility] (Rec: 11/02/23 14:18 [facility] [id number]) Posture Evaluation Dotty Postural Classification System Dotty Postural Classifications Posterior/Posterior Vertical Compression Test 1 Lumbar Protective Mechanism Left AP 1 Lumbar Protective Mechanism Right AP 0 Lumbar Protective Mechanism Left PA 2 Lumbar Protective Mechanism Right PA 2 Comments Posture Comments IR L>R knee, ant pelvic tilt, R iliac crest higher, equal greater troch, rot L; pelvic sheared L PT-OP-K Range of Motion Start: 10/26/23 17:37 Freq: Status: Active Protocol: Document 11/02/23 13:01 [facility] (Rec: 11/02/23 14:18 [facility] [id number]) Lumbar Spine Range of Motion Lumbar Spine Active Percentage Flexion 100 Extension 100 Rotation Left 100 Rotation Right 100 Lateral Flexion Left 100 Lateral Flexion Right 80 Comments pain flex, ext (L5 region where hinges), R sb; rot relief PT-OP-L Special Tests Start: 10/26/23 17:37 Freq: Status: Active Protocol: Document 11/02/23 13:01 [facility] (Rec: 11/02/23 14:18 [facility] [id number]) Special Tests Lumbar Spine Special Tests SLR Test Results positive R Angelito Test Results R iliacus tighter march test Test Results positive ext sit Test Results positive R Slump Test Results positive R PT-OP-M Strength Start: 10/26/23 17:37 Freq: Status: Active Protocol: Document 11/02/23 13:01 [facility] (Rec: 11/02/23 14:18 [facility] [id number]) Hip Strength Hip Manual Muscle Testing Right Flexion (L2) 4 Good Extension (S1) 4 Good Abduction 3+ Fair+ Adduction 5 Normal External Rotation 3+ Fair+ Internal Rotation 4+ Good+ Left Flexion (L2) 4+ Good+ Extension (S1) 5 Normal Abduction 4+ Good+ External Rotation 4- Good- Internal Rotation 4+ Good+ Comments B Knee and ankle MMT WNL PT-OP-Q Treatments Start: 10/26/23 17:37 Freq: Status: Active Protocol: Document 12/12/23 16:10 JG (Rec: 12/12/23 17:53 JG [id number]) Therapeutic Exercises Supine Exercises deadbugs Supine Exercise Name deadbugs with ball between knee and elbows Side bilateral Equipment Used [place] ball Reps/Minutes 1x10 ea Comments Cued to inc difficutly by squishing ball between elbow and knee Bridge /c Hip ABD Supine Exercise Name DL w/add using orange ball Side bilateral Resistance lvl 1 theraband Reps/Minutes 15 angelito stretch Side bilateral Reps/Minutes 1 ea Comments pt had tightness in the L>R quads Prone Exercises plank Side bilateral Reps/Minutes 1x30 Comments Cues for head position and ed on inc difficulty while Sidelying Exercises clamshell Sidelying Exercise Name sideplank forearm and knees Side bilateral Resistance lvl 1 band Reps/Minutes 10 ea Comments Cues for L4 rotation Other Exercises bird dog Other Exercise Name HEP reviewed Side bilateral Resistance UE flex / LE ext Reps/Minutes 15 ea Comments Tissue box used on lower back to correct rotation and cue to drive R knee Therapeutic Activity Therapeutic Activity squat mechanics Reps/Minutes 25 Comments Pt was ed on keeping a neutral spine on decent, L hip stabilization while squating and keeping head up during movement Manual Therapy Treatment Consent Patient gave verbal consent for manual Yes treatment Soft Tissue Mobilization Hip flexor Body Location Distal Psoas Mobilization Type Cross-Friction,Strumming, Sustained Pressure Intensity/Depth Moderate Body Position Hooklying PT-OP-T Assessment and Plan Start: 10/26/23 17:37 Freq: Status: Active Protocol: Document 12/12/23 16:10 JG (Rec: 12/12/23 17:53 JG [id number]) Physical Therapy Assessment Goals pain Short Term Goal (STG) Pt will report no LE symptoms greater than 1/10. STG Duration 12/21 Care Home Goal (LTG) Pt will report no pain in back or Les greater than 1/10 LTG Duration 01/24 SALUD Impairment 20/50 Short Term Goal (STG) Pt will score no greater than 13/50 on SALUD to show improved functional mobility STG Duration 12/11 Trombone Slide Assembler Goal (LTG) Pt will score no greater than 3/50 on SALUD to show improved functional mobility LTG Duration 01/24 strength Short Term Goal (STG) Pt will be indep w/HEP Care Home Goal (LTG) pt will score at least 4/5 in all planes LPM and 5/5 hip MMT in order to allow greater ease w/typical work activities . LTG Duration 01/24 activity Short Term Goal (STG) Pt will be able to sit and/or stand at least 1 hour w/o inc pain STG Duration 12/24 Trombone Slide Assembler Goal (LTG) pt will be able to work and do typical daily activites w/o inc pain greater than 1/10. LTG Duration 01/24 Assessment Summary Assessment Pt required less cues today with exercises and is feeling less pain throughout body. Pt still has slight back ext and L hip rotation during side planks and bird dogs but dec when cued. tested positive w/L angelito test (iliopsoas & rectus femoris). Physical Therapy Plan Frequency and Duration Frequency of Treatment 1-2x/wk Duration of treatment (weeks) 12 Plan of Care Start Date 11/02/23 Plan of Care End Date 01/25/24 Next Visit Focus/Plan Next Note Type Treatment Note Next Visit Plan Focus on HEP recall and any issues with plank, side plank or bird dogs. Work on progressing core and squat form. STM to work on L psoas tightness
--- NOTE | 2024-01-22 15:20 | PT.OTN ---
Current Diagnoses Low back pain, unspecified (12/19/23) Physical Therapy Treatment Note PT-OP-A Visit Information Start: 10/26/23 17:37 Freq: Status: Active Protocol: Document 12/19/23 14:37 [facility] (Rec: 12/19/23 15:24 [facility] [id number]) Out-Patient Physical Therapy Visit Information Visit Information Visit Type Treatment Note Visit Start Time 14:38 Visit Stop Time 15:22 Visit Number 8 Number of BELLSTAFF Visits 1 PT-OP-B Current Condition Start: 10/26/23 17:37 Freq: Status: Active Protocol: Document 11/02/23 13:01 [facility] (Rec: 11/02/23 14:18 [facility] [id number]) Current Condition History of Current Condition Onset Date 2 years Current Complaints LBP History of Current Condition Pt reports LBP starting about 2 years ago. She was at work and was builidng a propeller and she thought the table was bigger than it was and hit her back on the prop then fell onto butt onto floor. Has done PT and chiro from mar 2022 until Jan 2023 then got stationed here and has to start the process all over again. Has not seen ortho/ neurosurgery or had a MRI. PT or chiro did not help. For a while, she took a lot of meds (ibuprofen, mm relaxors) and those gave you relief at the time. takes only ibu occ now. 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 Xray didn' t show anything per pt. 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 they wanted to limit her duty, but she is trying to process to a different command so cannot be on limited duty until that transfer of command. She does her job tasks, but it inc pain. At first, pain was R sided, then started going lower then to L side and now pins and needles all the time. Toes are always going numb. Had a sharp stab once when walking and legs went completely numb and fellto the ground. Now, cannot tell she has to pee, until it becomes urgen to go but denies any bowel/bladder incontinence. Denies back pain before this incident but never was able to sit josh cross apple sauce and R leg was always tighter when younger. Never painful though Treatment Goals Patient/Caregiver Goals help back not be in as much pain, back feel stronger so can do everything at work w/o others helping extra PT-OP-C Subjective Start: 10/26/23 17:37 Freq: Status: Active Protocol: Document 12/19/23 14:37 [facility] (Rec: 12/19/23 15:24 [facility] [id number]) OP-PT Subjective Patient Comments Patient Comments Rosy reports she was very tired last week and nauseous so slept more and didn't do as many exercises. Her back was hurting more she thinks because of the extra lying down, but the nauseau passed Monday morning and she was able to start doing PT again and go looser. PT-OP-D Balance Start: 10/26/23 17:37 Freq: Status: Active Protocol: Document 11/02/23 13:01 [facility] (Rec: 11/02/23 14:18 [facility] [id number]) Balance Tests Single Limb Standing Single Limb- Right >30 sec pain LB Single Limb- Left >30 sec pain lat hip PT-OP-F Manual Assessment Start: 10/26/23 17:37 Freq: Status: Active Protocol: Document 11/02/23 13:01 [facility] (Rec: 11/02/23 14:18 [facility] [id number]) Manual Assessments Soft Tissue Assessment Soft Tissue Mobility Assessment B QL and ES and multifidi tightness; r glute tightness Joint Mobility Assessment Joint Mobility Assessment sacral rot PT-OP-G Mobility & Gait Start: 10/26/23 17:37 Freq: Status: Active Protocol: Document 11/02/23 13:01 [facility] (Rec: 11/02/23 14:18 [facility] [id number]) OP Gait Assessment Comments Gait Comments Amb w/dec push off R>L; dec stance time RLE PT-OP-J Posture/Palpation/Skin Start: 10/26/23 17:37 Freq: Status: Active Protocol: Document 11/02/23 13:01 [facility] (Rec: 11/02/23 14:18 [facility] [id number]) Posture Evaluation Dotty Postural Classification System Dotty Postural Classifications Posterior/Posterior Vertical Compression Test 1 Lumbar Protective Mechanism Left AP 1 Lumbar Protective Mechanism Right AP 0 Lumbar Protective Mechanism Left PA 2 Lumbar Protective Mechanism Right PA 2 Comments Posture Comments IR L>R knee, ant pelvic tilt, R iliac crest higher, equal greater troch, rot L; pelvic sheared L PT-OP-K Range of Motion Start: 10/26/23 17:37 Freq: Status: Active Protocol: Document 11/02/23 13:01 [facility] (Rec: 11/02/23 14:18 [facility] [id number]) Lumbar Spine Range of Motion Lumbar Spine Active Percentage Flexion 100 Extension 100 Rotation Left 100 Rotation Right 100 Lateral Flexion Left 100 Lateral Flexion Right 80 Comments pain flex, ext (L5 region where hinges), R sb; rot relief PT-OP-L Special Tests Start: 10/26/23 17:37 Freq: Status: Active Protocol: Document 11/02/23 13:01 [facility] (Rec: 11/02/23 14:18 [facility] [id number]) Special Tests Lumbar Spine Special Tests SLR Test Results positive R Angelito Test Results R iliacus tighter march test Test Results positive ext sit Test Results positive R Slump Test Results positive R PT-OP-M Strength Start: 10/26/23 17:37 Freq: Status: Active Protocol: Document 11/02/23 13:01 [facility] (Rec: 11/02/23 14:18 [facility] [id number]) Hip Strength Hip Manual Muscle Testing Right Flexion (L2) 4 Good Extension (S1) 4 Good Abduction 3+ Fair+ Adduction 5 Normal External Rotation 3+ Fair+ Internal Rotation 4+ Good+ Left Flexion (L2) 4+ Good+ Extension (S1) 5 Normal Abduction 4+ Good+ External Rotation 4- Good- Internal Rotation 4+ Good+ Comments B Knee and ankle MMT WNL PT-OP-Q Treatments Start: 10/26/23 17:37 Freq: Status: Active Protocol: Document 12/19/23 14:37 [facility] (Rec: 12/19/23 15:24 [facility] [id number]) Therapeutic Exercises Supine Exercises deadbugs Supine Exercise Name deadbugs w/ breathwork Side bilateral Equipment Used [place] ball Reps/Minutes 1x10 ea Comments vc relaxed neck; orange ball removed to improve breathholding compensation Bridge /c Hip ABD Supine Exercise Name DL w/add using orange ball Side bilateral Resistance lvl 1 theraband Reps/Minutes x15 Comments cues for breathwork FIg 4 Side bilateral Equipment Used R foot over lowered opp L knee , L fine over R knee Reps/Minutes 30s ea Comments R >L limitation ER, pain free range Sidelying Exercises clamshell Sidelying Exercise Name sideplank forearm and knees Side bilateral Resistance lvl 1 band Reps/Minutes 10 ea Comments Cues for cervical alignment, TrA, breath Other Exercises bird dog Other Exercise Name HEP reviewed Side bilateral Resistance UE flex / LE ext Reps/Minutes 15 ea Comments Tissue box used on lower back to correct rotation and cue to drive R knee Therapeutic Activity Therapeutic Activity squat mechanics Reps/Minutes 25 Comments Cues for keeping a neutral spine on decent and hip hinge w/ fatigue, and keeping head up during movement. Manual Therapy Treatment Consent Patient gave verbal consent for manual Yes treatment Soft Tissue Mobilization hips Mobilization Type Rolling,Sustained Pressure, Other Comments L piriformis and glutes s/l; supine Rectus femoris, TFL i/s in tennis ball self-stm Self-Care/Home Management Treatment Education Patient Education Body Mechanics,Home Exercise Program,Posture Other Education Edu w/ visual aids for core anatomy and interrelationship of Transverse abdominis w/ diaphragm and pelvic floor. PT-OP-T Assessment and Plan Start: 10/26/23 17:37 Freq: Status: Active Protocol: Document 01/22/24 15:18 [facility] (Rec: 01/22/24 15:20 [facility] [id number]) Physical Therapy Assessment Goals pain Short Term Goal (STG) Pt will report no LE symptoms greater than 1/10. STG Duration achieved Senior Living Goal (LTG) Pt will report no pain in back or Les greater than 1/10 LTG Duration 01/24 SALUD Impairment 20/50 Short Term Goal (STG) Pt will score no greater than 13/50 on SALUD to show improved functional mobility STG Duration 7/2 Game Designer/Creative Director Goal (LTG) Pt will score no greater than 3/50 on SALUD to show improved functional mobility LTG Duration 01/24 strength Short Term Goal (STG) Pt will be indep w/HEP STG Duration achieved Game Designer/Creative Director Goal (LTG) pt will score at least 4/5 in all planes LPM and 5/5 hip MMT in order to allow greater ease w/typical work activities . LTG Duration 01/24 activity Short Term Goal (STG) Pt will be able to sit and/or stand at least 1 hour w/o inc pain STG Duration achieved Game Designer/Creative Director Goal (LTG) pt will be able to work and do typical daily activites w/o inc pain greater than 1/10. LTG Duration 01/24 Assessment Summary Assessment Pt was doing really well with PT w/report of much dec LE pain and back pain but occ still back pain but at low level. P thas not been seen in over a month and cancelled last 3 visits and auth is now . DC d/t no longer attending PT Physical Therapy Plan Discharge Physical Therapy Discharge Reasons No Longer Attending PT Discharge Comments goals mostly met
== END 2024-01-25 08:45 | disposition home or self-care (01) ==
LOC: PHYS 14:30
DX: M54.50 Low back pain, unspecified (principal)
CPT/HCPCS: 97110; 97140; 97162; 97530; 97535

== ENCOUNTER → 2024-02-09 17:09 | Outpatient (CLI) | payer OTHER, SELFPAY | PROVIDERS: Referring Provider Family Medicine; Visit Provider Family Medicine | DX: Z34.00 Encounter for supervision of normal first pregnancy, unspecified trimester (principal) | CPT/HCPCS: 36415; 82105 ==

== ENCOUNTER 2024-02-20 06:13 | Emergency (ER) | payer OTHER, SELFPAY ==
[2024-02-20 06:26] VITALS: BP 117/67; PULSE 81; RESP 16; TEMP 36.4; O2SAT 100; BMI 25.7
--- NOTE | 2024-02-20 06:36 | DI.RAD.S_ITS ---
PROCEDURE: XR CHEST 1V INDICATIONS: chest pain, recent fever TECHNIQUE: One view of the chest was acquired. COMPARISON: None. FINDINGS: Surgical changes and devices: None. Lungs and pleura: Question minimal medial right basilar infiltrate. No pleural effusions or pneumothorax. Mediastinum: Mediastinal contours appear normal. Heart size is normal. Bones and chest wall: No suspicious bony lesions. Overlying soft tissues appear unremarkable. IMPRESSION: Question minimal medial right basilar infiltrate. Dictated by: Kike Bray M.D. on 02/20/2024 at 8:04 Approved by: Kike Bray M.D. on 02/20/2024 at 8:04
--- NOTE | 2024-02-20 06:39 | ED_ITS ---
HPI - Chest Pain <Gabby Newberry MD - Last Filed: 02/21/24 01:32> General Chief Complaint: Chest Pain Stated Complaint: chest pain, 20 weeks Time Seen by Provider: 02/20/24 06:16 Source: patient Mode of arrival: Ambulatory History of Present Illness HPI narrative: 23-year-old female at 20 weeks gestational age presents with central chest pressure, nonproductive cough. Reports associated sensation that she can not take a deep breath. States that she felt symptoms yesterday, but they seemed to get worse today. Four days ago patient had fever, she was evaluated at [facility] with a COVID-19 test, which was reportedly negative. She states that she was told that if she has any additional symptoms that she should come to the ER for evaluation. Denies leg swelling. Denies vaginal bleeding, contractions, dysuria, other complaints. Related Data Home Medications Medication Instructions Recorded Confirmed vitamin-ferrous sulfate tab PO 11/21/23 02/09/24 27 mg iron-folic acid 0.8 mg tablet Allergies Allergy/AdvReac Type Severity Reaction Status Date / Time No Known Drug Allergies Allergy Verified 02/09/24 16:22 Patient History <Gabby Newberry MD - Last Filed: 02/21/24 01:32> Surgical History [place] teeth extracted Family History Aunt Depression Uncle Leukemia Grandfather Lung disease Grandmother Dementia Father Family estrangement Grandmother Brain aneurysm Grandfather Abdominal hernia Social History marital status: unmarried,living together number of children: 0 household members: significant other and friend(s) lives independently: Yes caregiver/support person: No housing: condominium ([facility]) pets and animals: No education level: high school 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, 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[employer]) current occupational exposures/hazards: Yes special ole needs: No travel history: over 6 months ago seatbelt use: always water heater temp set < 120 deg: Yes working smoke detector in home: Yes fire extinguisher in home: Yes carbon monox detector in home: Yes firearms in home: Yes firearms unloaded and locked: Yes do you feel safe at home: Yes (answered in presence of s/o) Smoking Status: Former smoker Tobacco: How many years used: 3 second hand exposure: Yes (roommate vapes) alcohol intake: former (~1-3/week when not ) substance use type: does not use during the past year weight has: remained stable well-balanced diet: daily or most days daily servings fruits/ve or more times/day caffeine: No Type(s) of exercise: weight lifting Smoking Status: Former smoker Substance Use Type: does not use Exam <Gabby Newberry MD - Last Filed: 02/21/24 01:32> Initial Vital Signs Initial Vital Signs: Vital Signs Temperature 97.6 F 02/20/24 06:26 Pulse Rate 81 02/20/24 06:26 Respiratory Rate 16 02/20/24 06:26 Blood Pressure 117/67 02/20/24 06:26 Pulse Oximetry 100 02/20/24 06:26 Oxygen Delivery Method Room Air 02/20/24 06:26 Const: Awake, alert, no acute distress, nontoxic appearing Cardiac: regular rate, regular rhythm Chest: central chest tenderness to palpation bilateral sternal borders RESP: unlabored, clear bilaterally, no wheezing GI: Soft, nontender, nondistended, no rebound, no guarding MSK: no edema, full range of motion, pulses equal Skin: Warm, Dry, intact, no rashes Neuro: AO x3, CN II-XII grossly intact, moves all extremities <Jose Gardiner DO - Last Filed: 02/20/24 08:38> Initial Vital Signs Initial Vital Signs: Vital Signs Temperature 97.6 F 02/20/24 06:26 Pulse Rate 81 02/20/24 06:26 Respiratory Rate 16 02/20/24 06:26 Blood Pressure 117/67 02/20/24 06:26 Pulse Oximetry 100 02/20/24 06:26 Oxygen Delivery Method Room Air 02/20/24 06:26 Course <Gabby Newberry MD - Last Filed: 02/21/24 01:32> Orders Ordered: ED Orders 02/20/24 06:36 Chest [XR chest 1V] Stat EKG-12 Lead Stat 02/20/24 06:53 CBC Auto Diff [Complete Blood Count AUTO DIFF] Stat CMP [Comprehensive Metabolic Panel] Stat Respiratory Panel (Film Array) Stat Troponin & CK Cardiac Panel Stat Vital Signs Vital signs: Vital Signs - 8 hr 02/20/24 06:26 02/20/24 07:21 02/20/24 07:21 Temperature 97.6 F Pulse Rate 81 75 Respiratory Rate 16 22 Blood Pressure 117/67 113/60 Pulse Oximetry 100 99 Oxygen Delivery Method Room Air 02/20/24 07:30 02/20/24 07:30 02/20/24 08:00 Temperature Pulse Rate 71 92 H Respiratory Rate 21 22 Blood Pressure 101/57 L Pulse Oximetry 98 98 Oxygen Delivery Method 02/20/24 08:01 02/20/24 08:01 02/20/24 08:30 Temperature Pulse Rate 82 Respiratory Rate 19 Blood Pressure 110/57 L 108/62 Pulse Oximetry 98 Oxygen Delivery Method 02/20/24 08:30 Temperature Pulse Rate 76 Respiratory Rate 22 Blood Pressure Pulse Oximetry 98 Oxygen Delivery Method <Jose Gardiner DO - Last Filed: 02/20/24 08:38> Orders Ordered: ED Orders 02/20/24 06:36 Chest [XR chest 1V] Stat EKG-12 Lead Stat 02/20/24 06:53 CBC Auto Diff [Complete Blood Count AUTO DIFF] Stat CMP [Comprehensive Metabolic Panel] Stat Respiratory Panel (Film Array) Stat Troponin & CK Cardiac Panel Stat Vital Signs Vital signs: Vital Signs - 8 hr 02/20/24 06:26 02/20/24 07:21 02/20/24 07:21 Temperature 97.6 F Pulse Rate 81 75 Respiratory Rate 16 22 Blood Pressure 117/67 113/60 Pulse Oximetry 100 99 Oxygen Delivery Method Room Air 02/20/24 07:30 02/20/24 07:30 02/20/24 08:00 Temperature Pulse Rate 71 92 H Respiratory Rate 21 22 Blood Pressure 101/57 L Pulse Oximetry 98 98 Oxygen Delivery Method 02/20/24 08:01 02/20/24 08:01 02/20/24 08:30 Temperature Pulse Rate 82 Respiratory Rate 19 Blood Pressure 110/57 L 108/62 Pulse Oximetry 98 Oxygen Delivery Method 02/20/24 08:30 Temperature Pulse Rate 76 Respiratory Rate 22 Blood Pressure Pulse Oximetry 98 Oxygen Delivery Method MDM - Chest Pain <Gabby Newberry MD - Last Filed: 02/21/24 01:32> Lab Data 02/20/24 06:53 02/20/24 06:53 Labs: Lab Results 02/20/24 Range/Units 06:53 WBC 7.1 (4.5-11.0) X10^3/uL RBC 3.10 L (4.0-5.2) X10^6/uL Hgb 9.9 L (12.0-16.0) g/dL Hct 28.8 L (36-46) % MCV 92.9 (80-100) fL MCH 32.0 (26-34) PG MCHC 34.4 (30-36) % RDW 13.2 (11.6-14.8) % Plt Count 280 (150-400) X10^3/uL Neut % (Auto) 68.6 (50-75) % Lymph % (Auto) 21.7 L (25-40) % [place]kin % (Auto) 7.3 (3-14) % Eos % (Auto) 2.0 (2-4) % Baso % (Auto) 0.4 (0-2) % Neut # (Auto) 4900 (5466-5645) /uL Lymph # (Auto) 1600 (1539-7908) /uL Pitkin # (Auto) 500 (0-900) /uL Eos # (Auto) 100 (0-450) /uL Baso # (Auto) 0 (0-100) /uL Sodium 134 L (137-145) mmol/L Potassium 3.5 (3.4-5.1) mmol/L Chloride 109 H (98-107) mmol/L Carbon Dioxide 19 L (22-32) mmol/L BUN 5 L (7-17) mg/dL Creatinine 0.45 L (0.52-1.04) mg/dL Estimated GFR > 60 (>60) mL/min BUN/Creatinine Ratio 11.1 (6-22) Glucose 97 (70-100) mg/dL Calcium 8.9 (8.4-10.2) mg/dL Total Bilirubin 0.3 (0.2-1.3) mg/dL AST 21 (14-36) IU/L ALT 16 (<35) IU/L Alkaline Phosphatase 70 (38-126) U/L Total Creatine Kinase 26 L (30-135) U/L Troponin I < 0.012 (0.01-0.034) ng/mL Total Protein 6.7 (6.3-8.2) g/dL Albumin 3.6 (3.5-5.0) g/dL Globulin 3.1 (1.7-4.1) g/dL Albumin/Globulin Ratio 1.2 (1.0-2.8) Chlamy pneumoniae PCR Not detected (Not Detect) Adenovirus (PCR) Not detected (Not Detect) B.parapertussis DNA PCR Not detected (Not Detecte) Coronavirus OC43 (PCR) Not detected (Not Detect) Coronavirus HKU1 (PCR) Not detected (Not Detect) Coronavirus 229E (PCR) Not detected (Not Detect) SARS-CoV-2 (PCR) Not detected (Not Detecte) Coronavirus NL63 (PCR) Not detected (Not Detect) Human Metapneumovir PCR Not detected (Not Detect) Influenza Type A (PCR) Not detected (Not Detect) Influenza Type B (PCR) Not detected (Not Detect) M. pneumoniae (PCR) Not detected (Not Detect) Parainfluenza 1 (PCR) Not detected (Not Detect) Parainfluenza 2 (PCR) Not detected (Not Detect) Parainfluenza 3 (PCR) Not detected (Not Detect) Parainfluenza 4 (PCR) Not detected (Not Detect) RSV (PCR) Not detected (Not Detect) Entero/Rhino (PCR) Detected H (Not Detect) ECG Data Interpretation: Normal sinus rhythm at 71 beats per minute. Normal [place]. No ST T wave changes, no STEMI MDM Narrative Medical decision making narrative: Well-appearing patient with central chest pain preceded by fever several days prior. Physical exam is unremarkable, lungs are clear to auscultation, chest pain is reproducible across the front of the sternum. EKG normal sinus rhythm without obvious ischemic findings. Laboratory work and chest x-ray imaging ordered. Patient consented to chest x-ray with abdominal shielding. Labs, imaging pending. Care of patient signed to Dr. Gardiner at [address] DR Gardiner: Received turned over. Review patient's history and physical. When I went into review the patient's he stated that she was feeling somewhat better. She has a nonischemic EKG. Low suspicion for ACS. Is positive for rhino virus and she has had your eye like symptoms recently. Chest x-ray would be consistent with viral infection as well. Will hold on any antibiotics for now. Discussed all this with the patient. Discussed return precautions and follow-up instructions. She expressed understanding and agreement with plan. <Jose Gardiner, DO - Last Filed: 02/20/24 08:38> Lab Data Attestation: I reviewed the patient's lab results. Labs: Lab Results 02/20/24 Range/Units 06:53 WBC 7.1 (4.5-11.0) X10^3/uL RBC 3.10 L (4.0-5.2) X10^6/uL Hgb 9.9 L (12.0-16.0) g/dL Hct 28.8 L (36-46) % MCV 92.9 (80-100) fL MCH 32.0 (26-34) PG MCHC 34.4 (30-36) % RDW 13.2 (11.6-14.8) % Plt Count 280 (150-400) X10^3/uL Neut % (Auto) 68.6 (50-75) % Lymph % (Auto) 21.7 L (25-40) % [place]kin % (Auto) 7.3 (3-14) % Eos % (Auto) 2.0 (2-4) % Baso % (Auto) 0.4 (0-2) % Neut # (Auto) 4900 (5941-6261) /uL Lymph # (Auto) 1600 (8744-0770) /uL [place]kin # (Auto) 500 (0-900) /uL Eos # (Auto) 100 (0-450) /uL Baso # (Auto) 0 (0-100) /uL Sodium 134 L (137-145) mmol/L Potassium 3.5 (3.4-5.1) mmol/L Chloride 109 H (98-107) mmol/L Carbon Dioxide 19 L (22-32) mmol/L BUN 5 L (7-17) mg/dL Creatinine 0.45 L (0.52-1.04) mg/dL Estimated GFR > 60 (>60) mL/min BUN/Creatinine Ratio 11.1 (6-22) Glucose 97 (70-100) mg/dL Calcium 8.9 (8.4-10.2) mg/dL Total Bilirubin 0.3 (0.2-1.3) mg/dL AST 21 (14-36) IU/L ALT 16 (<35) IU/L Alkaline Phosphatase 70 (38-126) U/L Total Creatine Kinase 26 L (30-135) U/L Troponin I < 0.012 (0.01-0.034) ng/mL Total Protein 6.7 (6.3-8.2) g/dL Albumin 3.6 (3.5-5.0) g/dL Globulin 3.1 (1.7-4.1) g/dL Albumin/Globulin Ratio 1.2 (1.0-2.8) Chlamy pneumoniae PCR Not detected (Not Detect) Adenovirus (PCR) Not detected (Not Detect) B.parapertussis DNA PCR Not detected (Not Detecte) Coronavirus OC43 (PCR) Not detected (Not Detect) Coronavirus HKU1 (PCR) Not detected (Not Detect) Coronavirus 229E (PCR) Not detected (Not Detect) SARS-CoV-2 (PCR) Not detected (Not Detecte) Coronavirus NL63 (PCR) Not detected (Not Detect) Human Metapneumovir PCR Not detected (Not Detect) Influenza Type A (PCR) Not detected (Not Detect) Influenza Type B (PCR) Not detected (Not Detect) M. pneumoniae (PCR) Not detected (Not Detect) Parainfluenza 1 (PCR) Not detected (Not Detect) Parainfluenza 2 (PCR) Not detected (Not Detect) Parainfluenza 3 (PCR) Not detected (Not Detect) Parainfluenza 4 (PCR) Not detected (Not Detect) RSV (PCR) Not detected (Not Detect) Entero/Rhino (PCR) Detected H (Not Detect) Imaging Data Chest x-ray: Radiologist's Impression: PROCEDURE: XR CHEST 1V INDICATIONS: chest pain, recent fever TECHNIQUE: One view of the chest was acquired. COMPARISON: None. FINDINGS: Surgical changes and devices: None. Lungs and pleura: Question minimal medial right basilar infiltrate. No pleural effusions or pneumothorax. Mediastinum: Mediastinal contours appear normal. Heart size is normal. Bones and chest wall: No suspicious bony lesions. Overlying soft tissues appear unremarkable. IMPRESSION: Question minimal medial right basilar infiltrate. MDM Narrative Medical decision making narrative: Well-appearing patient with central chest pain preceded by fever several days prior. Physical exam is unremarkable, lungs are clear to auscultation, chest pain is reproducible across the front of the sternum. EKG normal sinus rhythm without obvious ischemic findings. Laboratory work and chest x-ray imaging ordered. Patient consented to chest x-ray with abdominal shielding. DR Gardiner: Received turned over. Review patient's history and physical. When I went into review the patient's he stated that she was feeling somewhat better. She has a nonischemic EKG. Low suspicion for ACS. Is positive for rhino virus and she has had your eye like symptoms recently. Chest x-ray would be consistent with viral infection as well. Will hold on any antibiotics for now. Discussed all this with the patient. Discussed return precautions and follow-up instructions. She expressed understanding and agreement with plan. Discharge Plan Departure Patient Disposition: Home Clinical Impression: Rhinovirus Instructions: DI for Viral Upper Respiratory Infection -- Adult Activity Restrictions/Additional Instructions: Continue to take all of your medications as directed. Keep all of your scheduled medical appointments. You can take Tylenol for any fevers or body aches. You can also take Benadryl or Claritin as needed for sinus congestion. Return to the emergency department for new symptoms. Prescriptions: No Action vit-ferrous sulfat-FA 27 mg iron- 0.8 mg tablet PO Referrals: Provider,Darlene RILEY [Primary Care Provider] - Stand Alone Forms: Patient Portal/API, Work Release Note
--- NOTE | 2024-02-20 06:45 | EKG_ITS ---
[address] [address] Test Date: 2024-02-20 Pat Name: Rosy Ramos Department: [facility] Room: Gender: Female Pneumatic Tester: MEGA : 2000 Requested By: Order Number: [id number] Reading MD: Seng Akbar Measurements Intervals [place] Rate: 71 P: 61 GA: 162 QRS: 89 QRSD: 84 T: 32 QT: 386 QTc: 419 Interpretive Statements Normal sinus rhythm Electronically Signed On 02-20-2024 9:23:18 PDT by Seng Akbar
[2024-02-20 07:04] LABS: Add Manual Diff / Slide Review NO; Basophils Absolute Auto 0 /uL (0-100); Basophils Percent Auto 0.4 % (0-2); Eosinophils Absolute Auto 100 /uL (0-450); Hematocrit 28.8 % (36-46); Hemoglobin 9.9 g/dL (12.0-16.0); Lymphocytes Absolute Auto 1600 /uL (1100-4500); Lymphocytes Percent Auto 21.7 % (25-40); Mean Corpuscular HGB Conc 34.4 % (30-36); Mean Corpuscular Volume 92.9 fL (80-100); Monocytes Absolute Auto 500 /uL (0-900); Monocytes Percent Auto 7.3 % (3-14); Neutrophils Absolute Auto 4900 /uL (1500-7000); Neutrophils Percent Auto 68.6 % (50-75); Platelet Count 280 X10^3/uL (150-400); Red Cell Distribution Width 13.2 % (11.6-14.8); White Blood Cell Count 7.1 X10^3/uL (4.5-11.0)
[2024-02-20 07:19] LABS: Alanine Aminotransferase 16 IU/L (<35); Albumin 3.6 g/dL (3.5-5.0); Albumin Globulin Ratio 1.2 (1.0-2.8); Alkaline Phosphatase 70 U/L (38-126); Aspartate Aminotransferase 21 IU/L (14-36); BUN Creatinine Ratio 11.1 (6-22); Bilirubin Total 0.3 mg/dL (0.2-1.3); Blood Urea Nitrogen 5 mg/dL (7-17); Calcium 8.9 mg/dL (8.4-10.2); Carbon Dioxide 19 mmol/L (22-32); Chloride 109 mmol/L (98-107); Creatine Kinase 26 U/L (30-135); Estimated Glomerular Filt Rate > 60 mL/min (>60); Globulin 3.1 g/dL (1.7-4.1); Glucose 97 mg/dL (70-100); HEMOLYSIS < 15 (0-50); Potassium 3.5 mmol/L (3.4-5.1); Sodium 134 mmol/L (137-145); Total Protein 6.7 g/dL (6.3-8.2)
[2024-02-20 07:21] VITALS: BP 113/60; PULSE 75; RESP 22; O2SAT 99
[2024-02-20 07:30] VITALS: BP 101/57; PULSE 71; RESP 21; O2SAT 98
[2024-02-20 07:31] LABS: Troponin I < 0.012 ng/mL (0.01-0.034)
[2024-02-20 07:52] LABS: Adenovirus Not Detected (Not Detect); B. parapertussis Not Detected (Not Detecte); Bordetella pertussis Not Detected (Not Detect); Chlamydophila pneumoniae Not Detected (Not Detect); Coronavirus 229E Not Detected (Not Detect); Coronavirus HKU1 Not Detected (Not Detect); Coronavirus NL 63 Not Detected (Not Detect); Coronavirus OC43 Not Detected (Not Detect); Human Metapneumovirus Not Detected (Not Detect); Human Rhinovirus/Enterovirus Detected (Not Detect); Influenza A Not Detected (Not Detect); Influenza B Not Detected (Not Detect); Mycoplasma pneumoniae Not Detected (Not Detect); Parainfluenza Virus 1 Not Detected (Not Detect); Parainfluenza Virus 2 Not Detected (Not Detect); Parainfluenza Virus 3 Not Detected (Not Detect); Parainfluenza Virus 4 Not Detected (Not Detect); Respiratory Syncytial Virus Not Detected (Not Detect); SARS- CoV-2 Not Detected (Not Detecte)
[2024-02-20 08:00] VITALS: PULSE 92; RESP 22; O2SAT 98
[2024-02-20 08:01] VITALS: BP 110/57; PULSE 82; RESP 19; O2SAT 98
[2024-02-20 08:30] VITALS: BP 108/62; PULSE 76; RESP 22; O2SAT 98
== END 2024-02-20 08:51 | disposition home or self-care (01) ==
PROVIDERS: Emergency Medicine; Emergency Provider Emergency Medicine
DX: B34.8 Other viral infections of unspecified site (principal); R05.9 Cough, unspecified; R07.9 Chest pain, unspecified; Z11.52 Encounter for screening for COVID-19; Z3A.20 20 weeks gestation of pregnancy
CPT/HCPCS: 36415; 71045; 80053; 82550; 84484; 85025; 87633; 93005; 99283; 99284

== ENCOUNTER → 2024-02-23 15:14 | Outpatient (CLI) | payer OTHER, SELFPAY ==
--- NOTE | 2024-02-23 15:15 | DI.US.S_ITS ---
PROCEDURE: US OB >= 14 WEEKS FETUS INDICATIONS: Anatomy OUTSIDE/PRIOR DATING DATA: Last menstrual period (LMP): 10/01/2023 LMP-based estimated date of delivery (SOLITARIO): 07/07/2024 First dating scan (date and location): 11/24/2023 Estimated date of delivery (SOLITARIO) from first dating scan: 07/12/2024 The calculations are made using the working SOLITARIO of 07/07/2024. TECHNIQUE: Real-time scanning was performed of the fetus, with image documentation and biometric measurements. Endovaginal scanning: Not performed COMPARISON: [facility], OB <= 14 WEEKS FETUS, 11/24/2023, 11:24. FINDINGS: General: A single living intrauterine gestation is present. Presentation: Vertex. Placenta: Placental position is anterior, without previa. Amniotic fluid index: 17.8 cm, normal range is 5-24 cm. Single deepest vertical pocket is 4.8 cm. heart rate: 147 beats per minute. Maternal cervical canal: Closed and measures 4.8 cm long. Normal lower limit is 2.5 cm. biometrics: Biparietal diameter: 4.6 cm, 19 weeks, 6 days. Head circumference: 17.0 cm, 19 weeks, 4 days. Abdominal circumference: 14.8 cm, 20 weeks, 0 day. Femur length: 3.1 cm, 19 weeks, 5 days. Clinically estimated gestational age: 20 weeks, 5 days. Composite gestational age from present scan: 19 weeks, 6 days. Estimated weight and percentile: 316 g, 10%. Anatomic survey: Neuro: Ventricles are non-dilated at less than 10 mm. Cisterna magna is normal at 3-11 mm. Cerebellum is normal in size and morphology. Bilateral choroid plexus cysts are seen measures 0.5 x 0.4 cm in size On the right side and 0.5 x 0.4 x 0.4 cm in size on the left side. Nuchal skin fold: Normal at less than 6 mm between 14-21 weeks gestational age. Face: Nose and lips, facial profile are normal. Spine: No evidence for spina bifida. Heart: 4-chambered heart is present, with normal ventricular outflow tracts. Diaphragm: Diaphragm is intact. Stomach: Left-sided stomach is present. Kidneys: No hydronephrosis. Normal is less than 5 mm in 2nd trimester, less than 7 mm in 3rd trimester. Cord: 3-vessel cord has orthotopic insertion. Bladder: Normal in size. Extremities: All 4 extremities identified. IMPRESSION: 1. Single live intrauterine gestation with fetus in vertex presentation. heart rate is 147 beats per minute. Normal GIRISH at at 17.8 cm. Estimated weight is at 10%. 2. Bilateral choroid plexus cysts as above. Sonographic follow-up is recommended. 3. Rest of the anatomic survey is normal. We strive to produce accurate, complete, and clear reports of imaging services. To assist us in improving patient care, this report was composed using standard report templates and voice recognition software. Therefore, it may contain abnormal punctuation, insertions and/or omissions. Occasional wrong-word or sound-alike substitutions may occur. Though we review the report and make efforts to correct it, we do recommend that the report be read carefully in proper context to recognize any text inaccuracies. Dictated by: Pete Infante M.D. on 02/23/2024 at 18:44 Approved by: Pete Infante M.D. on 02/23/2024 at 18:48
== END ==
LOC: US 15:14
PROVIDERS: Referring Provider Family Medicine; Visit Provider Family Medicine
DX: Z34.02 Encounter for supervision of normal first pregnancy, second trimester (principal); Z3A.19 19 weeks gestation of pregnancy
CPT/HCPCS: 76811

== ENCOUNTER → 2024-03-29 15:24 | Outpatient (CLI) | payer OTHER, SELFPAY ==
--- NOTE | 2024-03-29 15:25 | DI.MRI.S_ITS ---
PROCEDURE: MR LUMBAR SPINE WO CON INDICATIONS: ACUTE ON CHRONIC LBC EXACERBATED W/ TECHNIQUE: Noncontrast sagittal T1 spin echo and T2 fast echo, sagittal STIR, and T2 fast spin echo through the lumbar spine. In cases with scoliosis, additional coronal T2 fast spin echo may be performed. COMPARISON: None. FINDINGS: Image quality: Excellent. Alignment and Curvature: There is trace retrolisthesis L5-S1. Bone Marrow: Marrow is of normal overall signal. No acute vertebral body compression fractures. Spinal Cord: Conus medullaris terminates at the L1 level. Visualized cord demonstrates normal signal and size. Paraspinous Soft Tissues: No paravertebral masses. T12-L1: No disc bulge, spinal stenosis or foraminal narrowing. L1-L2: No disc bulge, spinal stenosis or foraminal narrowing. L2-L3: No disc bulge, spinal stenosis or foraminal narrowing. Mild epidural lipomatosis and ligamentum flavum hypertrophy. L3-L4: No disc bulge, spinal stenosis or foraminal narrowing. Mild epidural lipomatosis and ligamentum flavum hypertrophy. L4-L5: No disc bulge, spinal stenosis or foraminal narrowing. L5-S1: Minimal disc bulge without spinal stenosis. No foraminal narrowing. IMPRESSION: Minimal disc bulge L5-S1. Dictated by: Marisol Leach M.D. on 03/31/2024 at 16:06 Approved by: Marisol Leach M.D. on 03/31/2024 at 16:09
== END ==
DX: M54.59 Other low back pain (principal)
CPT/HCPCS: 72148

== ENCOUNTER → 2024-04-09 11:11 | Outpatient (CLI) | payer OTHER, SELFPAY ==
[2024-04-09 13:14] LABS: Add Manual Diff / Slide Review NO; Basophils Absolute Auto 0 /uL (0-100); Basophils Percent Auto 0.2 % (0-2); Eosinophils Absolute Auto 100 /uL (0-450); Eosinophils Percent Auto 0.7 % (2-4); Hematocrit 33.8 % (36-46); Hemoglobin 11.4 g/dL (12.0-16.0); Lymphocytes Absolute Auto 1900 /uL (1100-4500); Lymphocytes Percent Auto 21.9 % (25-40); Mean Corpuscular HGB Conc 33.8 % (30-36); Mean Corpuscular Hemoglobin 31.7 PG (26-34); Mean Corpuscular Volume 93.9 fL (80-100); Monocytes Absolute Auto 600 /uL (0-900); Monocytes Percent Auto 6.3 % (3-14); Neutrophils Absolute Auto 6200 /uL (1500-7000); Neutrophils Percent Auto 70.9 % (50-75); Platelet Count 337 X10^3/uL (150-400); Red Cell Distribution Width 12.8 % (11.6-14.8); White Blood Cell Count 8.8 X10^3/uL (4.5-11.0)
[2024-04-09 13:40] LABS: GTT (PREG) 1 Hour PP 50gm Dose 120 mg/dL (76-139)
== END ==
PROVIDERS: Referring Provider Family Medicine; Visit Provider Family Medicine
DX: Z34.00 Encounter for supervision of normal first pregnancy, unspecified trimester (principal)
CPT/HCPCS: 36415; 82950; 85025

== ENCOUNTER → 2024-05-08 15:24 | Outpatient (CLI) | payer OTHER, SELFPAY ==
--- NOTE | 2024-05-08 15:26 | DI.US.S_ITS ---
PROCEDURE: US OB FOLLOW UP INDICATIONS: growth OUTSIDE/PRIOR DATING DATA: Last menstrual period (LMP): 10/01/2023 LMP-based estimated date of delivery (SOLITARIO): 07/07/2024. First dating scan (date and location): 11/24/2023 . Estimated date of delivery (SOLITARIO) from first dating scan: 07/12/2024. The calculations are made using the working SOLITARIO of 07/07/2024. TECHNIQUE: Real-time scanning was performed of the fetus, with image documentation and biometric measurements. Endovaginal scanning: Not performed COMPARISON: None. FINDINGS: General: A single living intrauterine gestation is present. Presentation: Vertex Placenta: Placental position is anterior, without previa. Amniotic fluid index: 19.3 cm, normal range is 5-24 cm. Single deepest vertical pocket is 7.2 cm. heart rate: 152 beats per minute. Maternal cervical canal: Closed and measures 3.3 cm long. Normal lower limit is 2.5 cm. Clinically estimated gestational age: 31 weeks, 3 days. Other: Previously described bilateral choroid plexus cysts are no longer seen. IMPRESSION: 1. Single live intrauterine gestation with fetus in vertex presentation. heart rate is 152 beats per minute. Normal GIRISH at 19.3 cm. 2. Cervix is closed and measures 3.3 cm in length. 3. Interval resolution of previously noted bilateral choroid plexus cysts. We strive to produce accurate, complete, and clear reports of imaging services. To assist us in improving patient care, this report was composed using standard report templates and voice recognition software. Therefore, it may contain abnormal punctuation, insertions and/or omissions. Occasional wrong-word or sound-alike substitutions may occur. Though we review the report and make efforts to correct it, we do recommend that the report be read carefully in proper context to recognize any text inaccuracies. Dictated by: Pete Infante M.D. on 05/08/2024 at 16:36 Approved by: Pete Infante M.D. on 05/08/2024 at 16:38
== END ==
PROVIDERS: Referring Provider Family Medicine; Visit Provider Family Medicine
DX: O36.5930 Maternal care for other known or suspected poor fetal growth, third trimester, not applicable or unspecified (principal); Z3A.31 31 weeks gestation of pregnancy
CPT/HCPCS: 76816

== ENCOUNTER 2024-05-12 20:21 | Emergency (ER) | payer OTHER, SELFPAY ==
[2024-05-12 20:27] VITALS: BP 113/62; PULSE 100; RESP 18; TEMP 37.4; O2SAT 98; BMI 27.1
--- NOTE | 2024-05-12 20:54 | ED_ITS ---
HPI - URI/Sore Throat General Chief Complaint: Upper Respiratory Symptoms Stated Complaint: flu like symptoms Time Seen by Provider: 05/12/24 20:23 Source: patient Mode of arrival: Ambulatory History of Present Illness HPI Narrative: 24-year-old female at 32 weeks gestational age presents for sore throat, left ear pain, cough productive of clear sputum. Patient has been taking Tylenol at home for symptoms. She spoke with the nurse advice line who recommended that patient be seen within the next 8 hours. Sick call for the [place] is not open tomorrow and so she decided to come to the ER further evaluation. Reports good movement. She states that she occasionally has [place] contractions, but has not had any vaginal bleeding or loss of fluids. Related Data Home Medications Medication Instructions Recorded Confirmed vitamin-ferrous sulfate tab PO 11/21/23 04/26/24 27 mg iron-folic acid 0.8 mg tablet doxylamine succinate 25 mg tablet 25 mg PO BEDTIME PRN 03/11/24 04/26/24 (Unisom (doxylamine)) lidocaine 5 % topical patch 1 patch topical DAILY 04/25/24 04/26/24 (DermacinRx Lidocan) cyclobenzaprine 5 mg tablet 5 mg PO BID 04/26/24 04/26/24 escitalopram oxalate 5 mg tablet mg PO 04/26/24 04/26/24 Previous Rx's Medication Instructions Recorded ondansetron 4 mg disintegrating 4 mg PO Q8H PRN nausea and 03/11/24 tablet vomiting #30 tabs Allergies Allergy/AdvReac Type Severity Reaction Status Date / Time No Known Drug Allergies Allergy Verified 05/12/24 20:31 Patient History Surgical History [place] teeth extracted Family History Aunt Depression Uncle Leukemia Grandfather Lung disease Grandmother Dementia Father Family estrangement Grandmother Brain aneurysm Grandfather Abdominal hernia Social History marital status: unmarried,living together number of children: 0 household members: significant other and friend(s) lives independently: Yes caregiver/support person: No housing: condominium pets and animals: No education level: high school occupational status: employed current occupational exposures/hazards: Yes special ole needs: No travel history: over 6 months ago seatbelt use: always water heater temp set < 120 deg: Yes working smoke detector in home: Yes fire extinguisher in home: Yes carbon monox detector in home: Yes firearms in home: Yes firearms unloaded and locked: Yes do you feel safe at home: Yes (answered in presence of s/o) Smoking Status: Former smoker Tobacco: How many years used: 3 second hand exposure: Yes (roommate vapes) alcohol intake: former substance use type: does not use during the past year weight has: remained stable well-balanced diet: daily or most days daily servings fruits/ve or more times/day caffeine: No Type(s) of exercise: weight lifting Smoking Status: Former smoker Substance Use Type: does not use Exam Initial Vital Signs Initial Vital Signs: Vital Signs Temperature 99.3 F 05/12/24 20:27 Pulse Rate 100 H 05/12/24 20:27 Respiratory Rate 18 05/12/24 20:27 Blood Pressure 113/62 05/12/24 20:27 Pulse Oximetry 98 05/12/24 20:27 Oxygen Delivery Method Room Air 05/12/24 20:27 Const: Awake, alert, no acute distress, nontoxic appearing HEENT: R TM normal, L TM with clear fluid present, no erythema or bulging. Pharynx normal, mucous membranes moist Cardiac: regular rate, regular rhythm RESP: unlabored, clear bilaterally, no wheezing GI: Soft, nontender, gravid per gestational age Skin: Warm, Dry, intact, no rashes Neuro: AO x3, CN II-XII grossly intact, moves all extremities Course Orders Ordered: ED Orders 05/12/24 20:30 Respiratory Panel (Film Array) Stat Vital Signs Vital signs: Vital Signs - 8 hr 05/12/24 20:27 05/12/24 22:13 Temperature 99.3 F 98.8 F Pulse Rate 100 H 86 Respiratory Rate 18 18 Blood Pressure 113/62 115/63 Pulse Oximetry 98 98 Oxygen Delivery Method Room Air Room Air MDM - URI/Sore Throat Lab Data Labs: Lab Results 05/12/24 Range/Units 20:30 Chlamy pneumoniae PCR Not detected (Not Detect) Adenovirus (PCR) Not detected (Not Detect) B. pertussis DNA (PCR) Not detected (Not Detect) B.parapertussis DNA PCR Not detected (Not Detecte) Coronavirus OC43 (PCR) Not detected (Not Detect) Coronavirus HKU1 (PCR) Not detected (Not Detect) Coronavirus 229E (PCR) Not detected (Not Detect) SARS-CoV-2 (PCR) Not detected (Not Detecte) Coronavirus NL63 (PCR) Detected H (Not Detect) Human Metapneumovir PCR Not detected (Not Detect) Influenza Type A (PCR) Not detected (Not Detect) Influenza Type B (PCR) Not detected (Not Detect) M. pneumoniae (PCR) Not detected (Not Detect) Parainfluenza 1 (PCR) Not detected (Not Detect) Parainfluenza 2 (PCR) Not detected (Not Detect) Parainfluenza 3 (PCR) Not detected (Not Detect) Parainfluenza 4 (PCR) Not detected (Not Detect) RSV (PCR) Not detected (Not Detect) Entero/Rhino (PCR) Not detected (Not Detect) MDM Narrative Medical decision making narrative: Well-appearing patient with upper respiratory symptoms. Speaking in complete sentences without dyspnea, lungs are clear to auscultation bilaterally. Respiratory panel positive for coronavirus. Patient counseled to continue to take Tylenol as needed for fever or discomfort. 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 ED return precautions discussed. Discharge Plan Departure Patient Disposition: Home Clinical Impression: Coronavirus infection, unspecified Instructions: Common Cold Activity Restrictions/Additional Instructions: Your respiratory panel was positive for coronavirus NL63. Coronavirus relates to the type of virus, this is not COVID 19. Take Tylenol as needed for fever or aches. Make sure you stay hydrated and drink plenty of fluids. You should feel better in the next several days. Prescriptions: No Action lidocaine [DermacinRx Lidocan] 5 % adhesive patch,medicated 1 patch topical DAILY Rx Instructions: leave on most painful area for up to 12 hrs Unisom (doxylamine) 25 mg tablet 25 mg PO BEDTIME PRN ondansetron 4 mg tablet,disintegrating 4 mg PO Q8H PRN (Reason: nausea and vomiting) Qty: 30 0RF vit-ferrous sulfat-FA 27 mg iron- 0.8 mg tablet PO cyclobenzaprine 5 mg tablet 5 mg PO BID escitalopram oxalate 5 mg tablet PO Referrals: Provider,Darlene RILEY [Primary Care Provider] - Stand Alone Forms: Patient Portal/API/Survey, Work Release Note
[2024-05-12 21:28] LABS: Adenovirus Not Detected (Not Detect); B. parapertussis Not Detected (Not Detecte); Bordetella pertussis Not Detected (Not Detect); Chlamydophila pneumoniae Not Detected (Not Detect); Coronavirus 229E Not Detected (Not Detect); Coronavirus HKU1 Not Detected (Not Detect); Coronavirus NL 63 Detected (Not Detect); Coronavirus OC43 Not Detected (Not Detect); Human Metapneumovirus Not Detected (Not Detect); Human Rhinovirus/Enterovirus Not Detected (Not Detect); Influenza A Not Detected (Not Detect); Influenza B Not Detected (Not Detect); Mycoplasma pneumoniae Not Detected (Not Detect); Parainfluenza Virus 1 Not Detected (Not Detect); Parainfluenza Virus 2 Not Detected (Not Detect); Parainfluenza Virus 3 Not Detected (Not Detect); Parainfluenza Virus 4 Not Detected (Not Detect); Respiratory Syncytial Virus Not Detected (Not Detect); SARS- CoV-2 Not Detected (Not Detecte)
[2024-05-12 22:13] VITALS: BP 115/63; PULSE 86; RESP 18; TEMP 37.1; O2SAT 98
== END 2024-05-12 22:12 | disposition home or self-care (01) ==
PROVIDERS: Emergency Provider Emergency Medicine
DX: O98.513 Other viral diseases complicating pregnancy, third trimester (principal); U07.1 COVID-19; Z3A.32 32 weeks gestation of pregnancy
CPT/HCPCS: 87633; 99282; 99283

== ENCOUNTER → 2024-06-10 08:13 | Outpatient (CLI) | payer OTHER, SELFPAY ==
[2024-06-11 11:42] LABS: Strep Grp B PCR NEG for Grp B Strep
== END ==
PROVIDERS: Referring Provider Family Medicine; Visit Provider Family Medicine
DX: Z36.85 Encounter for antenatal screening for Streptococcus B (principal)
CPT/HCPCS: 87653

== ENCOUNTER 2024-07-04 21:25 | Inpatient (IN) | payer OTHER, SELFPAY ==
[2024-07-04 22:14] LABS: Add Manual Diff / Slide Review NO; Basophils Absolute Auto 0 /uL (0-100); Basophils Percent Auto 0.6 % (0-2); Eosinophils Absolute Auto 100 /uL (0-450); Eosinophils Percent Auto 0.8 % (2-4); Hemoglobin 10.8 g/dL (12.0-16.0); Lymphocytes Absolute Auto 1900 /uL (1100-4500); Lymphocytes Percent Auto 23.4 % (25-40); Mean Corpuscular HGB Conc 33.6 % (30-36); Mean Corpuscular Hemoglobin 30.6 PG (26-34); Mean Corpuscular Volume 90.9 fL (80-100); Monocytes Absolute Auto 700 /uL (0-900); Monocytes Percent Auto 8.7 % (3-14); Neutrophils Absolute Auto 5400 /uL (1500-7000); Neutrophils Percent Auto 66.5 % (50-75); Platelet Count 252 X10^3/uL (150-400); Red Blood Cell Count 3.52 X10^6/uL (4.0-5.2); White Blood Cell Count 8.1 X10^3/uL (4.5-11.0)
[2024-07-04 22:22] VITALS: BP 130/86
[2024-07-05] MEDS: LACTATED RINGERS 1,000 ML 100 ML IV ×2 (02:12→15:08)
[2024-07-05] MEDS: OXYTOCIN PREMIX 30 UNIT/500 ML PLAST..BAG IV (02:13)
[2024-07-05] MEDS: fentaNYL 100 MCG/2 ML INJ 50 MCG IV ×2 (04:26→05:43)
--- NOTE | 2024-07-05 08:08 | PM.OBHP.IH.1 ---
OB HPI Date/Time Date of admission: 07/05/24 Date Patient Seen: 07/05/24 Time Patient Seen: 07:41 History of Present Condition Chief complaint: ROM Date of Last Menstrual Period: 10/01/23 SOLITARIO Calculator Estimated Delivery Date Method Current WG Current Estimate 07/07/24 LMP (Certain) 39w 5d Estimated Gestational Age (weeks): 39w5d : 1 Para: 0 Narrative: 24 yo at 39w4d presented with SROM and was admitted to Labor and Delivery. Per her report, ROM was at approximately 6:30pm and was clear. has been uncomplicated aside from MSK pain which has been managed with PT and OMT. care: good care Dating criteria OB: based on LMP only Ultrasounds: normal 1st trimester US Obstetrical complications: none and other (musculoskeletal pain ) Medical complications OB: none Preadmission Labs Last OB Lab Results: Blood Type O Positive 07/04/24 22:00 Antibody Screen Negative 07/04/24 22:00 Hct 32.0 % (36-46) L 07/04/24 22:00 Hgb 10.8 g/dL (12.0-16.0) L 07/04/24 22:00 Hep Bs Antigen Negative s/c (NEGATIVE) 12/04/23 10:52 Hepatitis C Antibody Negative s/c (NEGATIVE) 12/04/23 10:52 Rubella Antibody 7.6 IU/mL (>15) L 12/04/23 10:52 VZV IgG Antibody 2077 index (Immune >165) 12/04/23 10:52 Glucose 1 Hr 50 gm 120 mg/dL (76-139) 04/09/24 12:17 Group B Strep (PCR) Neg for grp b strep 06/10/24 10:15 Glucose Tolerance Testin hr -: Chlamydia screen: unknown and Gonorrhea screen: unknown Genetic Screens: Quad screen: Normal, Cell-free DNA: Normal and Alpha-fetoprotein: Normal Prior (ies) Hx # Term Pregnancies: 0 Hx # Pregnancies: 0 Number of Living Children: 0 Multiple births: 0 Spontaneous abortions: 0 Ectopic pregnancies: 0 Elective abortions: 0 Evaluation Evaluation Baseline heart rate: 150 Variability: Moderate (11-25) monitor accelerations: Present Monitor Decelerations: Absent Category of Tracing: Reactive Status: Category l Dilation (cm): 1 Effacement (%): 60 Dilation: 3-4 cm Effacement: 60-70% station: -3 Comments: grossly ruptured PFSH Surgical History [place] teeth extracted Family History Aunt Depression Uncle Leukemia Grandfather Lung disease Grandmother Dementia Father Family estrangement Grandmother Brain aneurysm Grandfather Abdominal hernia Social History marital status: unmarried,living together number of children: 0 household members: significant other and friend(s) lives independently: Yes caregiver/support person: No housing: condominium pets and animals: No education level: high school occupational status: employed current occupational exposures/hazards: Yes special ole needs: No travel history: over 6 months ago seatbelt use: always water heater temp set < 120 deg: Yes working smoke detector in home: Yes fire extinguisher in home: Yes carbon monox detector in home: Yes firearms in home: Yes firearms unloaded and locked: Yes do you feel safe at home: Yes (answered in presence of s/o) Smoking Status: Former smoker Tobacco: How many years used: 3 second hand exposure: Yes (roommate vapes) alcohol intake: former substance use type: does not use during the past year weight has: remained stable well-balanced diet: daily or most days daily servings fruits/ve or more times/day caffeine: No Type(s) of exercise: weight lifting Meds Home Medications and Allergies Home Medications Medication Instructions Recorded Confirmed Type vitamin-ferrous sulfate tab PO 11/21/23 07/01/24 History 27 mg iron-folic acid 0.8 mg tablet lidocaine 5 % topical patch 1 patch topical DAILY 04/25/24 07/01/24 History (DermacinRx Lidocan) Allergies Allergy/AdvReac Type Severity Reaction Status Date / Time No Known Drug Allergies Allergy Verified 07/01/24 10:01 OB Exam Narrative Exam Narrative: Gen: pt comfortable with epidural in place pulm: breathing comfortably on RA Abd: gravid Objective Labs 07/04/24 22:00 Labs: Laboratory Results - last 24 hr 07/04/24 22:00 WBC 8.1 RBC 3.52 L Hgb 10.8 L Hct 32.0 L MCV 90.9 MCH 30.6 MCHC 33.6 RDW 15.0 H Plt Count 252 Neut % (Auto) 66.5 Lymph % (Auto) 23.4 L [place] % (Auto) 8.7 Eos % (Auto) 0.8 L Baso % (Auto) 0.6 Neut # (Auto) 5400 Lymph # (Auto) 1900 [place] # (Auto) 700 Eos # (Auto) 100 Baso # (Auto) 0 Blood Type O Positive Antibody Screen Negative Assessment and Plan Assessment and Plan Assessment and Plan narrative: 24 yo at 39w5d presented with SROM and was admitted to Labor and Delivery. Per her report, ROM was at approximately 6:30pm and was clear. # SROM - Admit to LD - GBs neg - CBC, TS - continue Pitocin augmentation - Epidural in place - limit cervical checks - Trend temp, no signs of intraamniotic infection at this time Time-Based Coding :: [TOTAL MINUTES] spent with patient and on the chart (including review of chart, obtaining history, exam, reviewing outside data, placing orders, documenting exam and treatment plan, and counseling patient) on [DATE].
--- NOTE | 2024-07-05 08:26 | PM.AN.REGBLK ---
Regional Block Pre-procedure Procedure: Continuous Lumbar Epidural for L&D Attending OB provider: Katie Barnhart PM/COREY narrative: G1 term labor, no medical or obstetric complications. ASA Class: II Labs: Hct 32.0 % (36-46) L 07/04/24 22:00 Plt Count 252 X10^3/uL (150-400) 07/04/24 22:00 Medications: Current Medications Generic Name Dose Route Start Last Admin Trade Name Freq PRN Reason Stop Dose Admin Calcium Carbonate 1,000 mg 07/04/24 21:49 Calcium Carbonate 500 Mg Tab PO Q2HR PRN Dyspepsia Carboprost Tromethamine 250 mcg 07/04/24 21:49 Carboprost 250 Mcg/Ml Ampul IM Q90M PRN Bleeding Diphenhydramine HCl 25 mg 07/05/24 07:14 Diphenhydramine 50 Mg/Ml Vial IV Q10M PRN Pruritis Fentanyl 50 mcg 07/04/24 21:49 07/05/24 05:43 Fentanyl 100 Mcg/2 Ml Inj IV 50 mcg Q1H PRN Administration Pain, Moderate (4-6) Oxytocin/Lactated Ringer's 30 unit in 500 mls @ 200 mls/hr 07/04/24 21:49 Oxytocin Premix IV CONT PRN Bleeding Protocol Tranexamic Acid 1,000 mg/ 100 mls @ 600 mls/hr 07/04/24 21:49 Sodium Chloride IV NOW PRN Bleeding Oxytocin/Lactated Ringer's 30 unit in 500 mls @ 2 mls/hr 07/04/24 22:00 07/05/24 02:13 Oxytocin Premix IV 2 milliunit/min TITRATE GABY 2 mls/hr Administration Protocol 2 MILLIUNIT/MIN FENT 2MCG/ML BUPIV 0.125% EPI 200 mcg in 100 mls @ 6 mls/hr 07/05/24 07:15 Fentanyl/Bupiv/Ns 2mcg/Ml - 0.125% EPIDURAL CONT GABY Lidocaine HCl 20 ml 07/04/24 21:49 Lidocaine 1% 20 Ml INJ INTRA-OP PRN Post Delivery Methylergonovine Maleate 0.2 mg 07/04/24 21:49 Methylergonovine 0.2 Mg Tablet PO Q6HR PRN Heavy Bleeding Methylergonovine Maleate 0.2 mg 07/04/24 21:49 Methylergonovine 0.2 Mg/Ml Vial IM NOW PRN Bleeding Mineral Oil 30 ml 07/04/24 21:49 Mineral Oil 30 Ml Udc TOP PRN PRN Version Misoprostol 800 mcg 07/04/24 21:49 Misoprostol 200 Mcg Tablet AR NOW PRN Bleeding Misoprostol 400 mcg 07/04/24 21:49 Misoprostol 200 Mcg Tablet SL NOW PRN Bleeding Nalbuphine HCl 2.5 mg 07/05/24 07:14 Nalbuphine 20 Mg/Ml Ampul IV Q10M PRN Pruritis Naloxone HCl 0.2 mg 07/04/24 21:49 Naloxone 0.4 Mg/Ml Vial IV Q2MIN PRN Opiate Reversal Ondansetron HCl 4 mg 07/04/24 21:49 Ondansetron 4 Mg/2 Ml Inj IV Q4HR PRN Nausea And Vomiting Oxytocin 10 unit 07/04/24 21:49 Oxytocin 10 Unit/Ml Vial IM NOW PRN Bleeding Allergies: Allergies Allergy/AdvReac Type Severity Reaction Status Date / Time No Known Drug Allergies Allergy Verified 07/01/24 10:01 Procedure Insertion date: 07/05/24 Insertion time: 07:27 Prep/Local: betadine x3 and 1% lidocaine Interspace: L34 Patient position: sitting Needle: 18 gauge Hustead (CSE: 27g Pencan through Hustead, clear CSF, 1mL 0.25% MPF bupiv) Loss of resistance with: saline DUGLAS at (cm): 4 Catheter placed at SKIN (cm): 10 Catheter in SPACE (cm): 6 Insertion: No CSF, No Blood, No Paresthesia with insertion, No Paresthesia with injection and No Test dose reaction Initial Medications TEST DOSE time: 07:29 TEST DOSE: 1.5% lidocaine with epinephrine 1:200k (mL): 3 BOLUS DOSE time: 07:39 BOLUS DOSE (mL): 4 BOLUS DOSE med: other (infusate) Infusion INFUSION: 0.125% bupivacaine and with fentanyl 2 mcg/mL Initial rate (mL/hr): 8 Post-procedure Anesthesia date START: 07/05/24 Anesthesia time START: 07:18 Anesthesia date END: 07/05/24 Anesthesia time END: 16:36 Post-procedure Anesthesia Assessment: Yes CV function: HR/BP stable, Yes Resp function: RR/sat/airway adequate, Yes Post-op hydration adequate, Yes Pain control adequate, Yes Nausea & vomiting absent, Yes Temperature > 36 C, Yes Mental status appropriate and No Anesthesia complications
[2024-07-05] MEDS: FENT 2MCG/ML BUPIV 0.125% EPI 200 MCG/100 ML PLAST..BAG 6 MCG EPIDURAL (15:31)
[2024-07-05] MEDS: TRANEXAMIC ACID 1,000 MG in SODIUM CHLORIDE 0.9% 100 ML 600 MG IV (16:35)
[2024-07-05] MEDS: LIDOCAINE 1% 20 ML INJ (16:45)
--- NOTE | 2024-07-05 17:19 | PM.OBPRVD ---
Labor & Delivery Delivery date: 07/05/24 Delivery Time: 14:26 Intrapartal Events: None Cervical ripening method: none Induction method: none Delivery augmentation: pitocin Delivery monitor: external FHT Route of delivery: L&D Laceration Description: Perineal - 2nd Degree Delivery repair: vicryl Estimated blood loss (mL): 600 Quantitative Blood Loss: 827 (under buttocks drape measured, 300mL subtracted for amniotic fluid so not a true QBL) Anesthesia Type: Epidural Complications: None Narrative: PROCEDURE: 24 yo at 39w5d presented with SROM and was admitted to Labor and Delivery. Per her report, ROM was at approximately 6:30pm and was clear. She was managed expectantly for a few hours but due to slow progress and ROM, she was started on Pitocin. She progressed in labor and became more uncomfortable. She received 2 doses of IV fentanyl before requesting an epidural, which was placed without difficulty. The patient progressed and delivered a viable female infant with APGARs 8/9 at 16:26 via out of direct OA presentation in hands and knees position. The cord was cut and clamped after a 60 second delay. She was turned onto her back for placenta delivery and evaluation of heavy bleeding. 1gTXA was given and Pitocin was started wide open. The placenta was delivered with gentle cord traction, and appeared complete. Fundal massage lead to expulsion of a large clot then fundus became firm. Bleeding slowed but did continue to pulse from a perineal laceration. A 2nd degree perineal laceration with pumping arterial bleed was noted. This laceration was repaired in the usual fashion. After repair, bleeding slowed significantly. EBL at the time of completion of repair was 600mL, QBL was 827, although this was adjusted slightly due to amniotic fluid included in the blood volume measured Needle and sponge counts were correct.? The vagina was inspected and no items were left in situ. PREPROCEDURE DIAGNOSIS: Intrauterine at 39w5d GBS negative RH positive POSTPROCEDURE DIAGNOSIS: Intrauterine at 39w5d, delivered Same as preprocedure hemorrahge Plan for aftercare: Routine care
[2024-07-05] MEDS: IBUPROFEN 600 MG TABLET PO (19:48)
[2024-07-05] MEDS: ACETAMINOPHEN 325 MG TABLET 650 MG PO (19:49)
[2024-07-06] MEDS: MAGNESIUM HYDROXIDE 30 ML UDC PO (02:33)
[2024-07-06] MEDS: ACETAMINOPHEN 325 MG TABLET 650 MG PO ×2 (02:33→13:48)
[2024-07-06] MEDS: IBUPROFEN 600 MG TABLET PO ×2 (02:34→13:48)
[2024-07-06 06:09] LABS: Add Manual Diff / Slide Review NO; Basophils Absolute Auto 0 /uL (0-100); Basophils Percent Auto 0.2 % (0-2); Eosinophils Absolute Auto 100 /uL (0-450); Eosinophils Percent Auto 0.5 % (2-4); Hemoglobin 8.7 g/dL (12.0-16.0); Lymphocytes Absolute Auto 1800 /uL (1100-4500); Lymphocytes Percent Auto 15.7 % (25-40); Mean Corpuscular HGB Conc 33.6 % (30-36); Mean Corpuscular Hemoglobin 30.2 PG (26-34); Mean Corpuscular Volume 89.8 fL (80-100); Monocytes Absolute Auto 1100 /uL (0-900); Neutrophils Absolute Auto 8700 /uL (1500-7000); Neutrophils Percent Auto 74.6 % (50-75); Platelet Count 199 X10^3/uL (150-400); Red Blood Cell Count 2.89 X10^6/uL (4.0-5.2); Red Cell Distribution Width 14.6 % (11.6-14.8); White Blood Cell Count 11.7 X10^3/uL (4.5-11.0)
--- NOTE | 2024-07-06 09:43 | P.DS_ITS ---
Discharge Providers Provider Date of admission: 07/04/24 21:25 Discharge Date: 07/06/24 Primary care physician: Darlene RILEY Provider Consults: 07/04/24 21:49 Consult to Anesthesiology Urgent Comment: Consulting Provider: Anesthesiologist Reason for consultation: Epidural 07/06/24 19:07 Consult to Educational Technology Specialist Routine Comment: Discharge provider: Martha Ross MD Summary Hospital Course Date Patient Seen: 07/06/24 Time Patient Seen: 09:30 Diagnoses: Term Hospital Course: This is a 24 yo who delivered vaginally at 39w5d following SROM. Delivery complicated hemorrhage due to laceration. uncomplicated. She recovered well . Vaginal bleeding like a period. Pain controlled on oral meds. complicated by tongue tie. Pumping and supplementing with formula. Peripartum Data Infant Delivery Method: Natural Vaginal complications: none Status at Discharge Cognitive/behavioral status at discharge: oriented Functional status at discharge: independent ambulation Time Spent with Patient Time attestation: Total time spent providing and/or coordinating discharge services: Time spent: Greater than 30 minutes Objective Labs 07/06/24 05:38 Labs: Laboratory Results - last 24 hr 07/06/24 05:38 WBC 11.7 H RBC 2.89 L Hgb 8.7 L Hct 26.0 L MCV 89.8 MCH 30.2 MCHC 33.6 RDW 14.6 Plt Count 199 Neut % (Auto) 74.6 Lymph % (Auto) 15.7 L [place] % (Auto) 9.0 Eos % (Auto) 0.5 L Baso % (Auto) 0.2 Neut # (Auto) 8700 H Lymph # (Auto) 1800 [place] # (Auto) 1100 H Eos # (Auto) 100 Baso # (Auto) 0 Exam Narrative Exam Narrative: NAD. Breathing easily. Discharge Plan Discharge Plan Patient Disposition: Home Discharge orders & Medications Prescriptions: New acetaminophen 325 mg Tablet 650 mg PO Q6HR PRN (Reason: Pain, Mild (1-3)) Qty: 60 0RF docusate sodium 100 mg Capsule 100 mg PO BID Qty: 60 0RF ibuprofen 600 mg Tablet 600 mg PO Q6HR PRN (Reason: Pain, Mild (1-3)) Qty: 60 0RF Continued lidocaine [DermacinRx Lidocan] 5 % adhesive patch,medicated 1 patch topical DAILY Rx Instructions: leave on most painful area for up to 12 hrs vit-ferrous sulfat-FA 27 mg iron- 0.8 mg tablet PO Follow up/Referrals: Provider,Darlene RILEY [Primary Care Provider] - Visit Report/Discharge Packet Stand Alone Forms: Patient Portal/API, Stroke Signs & Symptoms Discharge Data Primary Care Provider: Darlene Mckay
[2024-07-06] MEDS: MEASLES,MUMPS,RUBELLA VACC/PF 0.5 ML VIAL SUBCUT (13:49)
== END 2024-07-06 16:01 | disposition home or self-care (01) | DRG 807 ==
PROVIDERS: Admitting Provider Family Medicine; Referring Provider Family Medicine; Visit Provider Family Medicine
DX: O70.1 Second degree perineal laceration during delivery (principal); Z37.0 Single live birth; Z67.40 Type O blood, Rh positive; Z77.22 Contact with and (suspected) exposure to environmental tobacco smoke (acute) (chronic); Z3A.39 39 weeks gestation of pregnancy; Z23 Encounter for immunization
CPT/HCPCS: 36415; 59050; 59400; 85025; 86850; 86900; 86901; G0379; J2590; J3010

== ENCOUNTER → 2024-11-21 07:20 | Outpatient (CLI) | payer OTHER, SELFPAY ==
--- NOTE | 2024-11-21 07:21 | DI.MRI.S_ITS ---
PROCEDURE: MR LUMBAR SPINE WO CON INDICATIONS: lower back pain TECHNIQUE: Noncontrast sagittal T1 spin echo and T2 fast echo, sagittal STIR, and T2 fast spin echo through the lumbar spine. In cases with scoliosis, additional coronal T2 fast spin echo may be performed. COMPARISON: [facility], MR, MR LUMBAR SPINE WO CON, 03/29/2024, 15:31. FINDINGS: Image quality: Excellent. Alignment and Curvature: There is normal bony alignment. Bone Marrow: Marrow is of normal overall signal. No acute vertebral body compression fractures. Spinal Cord: Conus medullaris terminates at the L1 level. Visualized cord demonstrates normal signal and size. Paraspinous Soft Tissues: No paravertebral masses. T12-L1: Normal appearance. L1-L2: Normal appearance. L2-L3: Normal appearance. L3-L4: Normal appearance. L4-L5: Normal appearance. L5-S1: Small central disc bulge without stenosis. IMPRESSION: Minimal disc bulge at L5-S1 similar to prior imaging without central canal or foraminal stenosis. Dictated by: Jennifer Peter M.D. on 11/21/2024 at 11:47 Approved by: Jennifer Peter M.D. on 11/21/2024 at 12:11
== END ==
DX: M54.50 Low back pain, unspecified (principal)
CPT/HCPCS: 72148